=== PATIENT | female | born 1955 | race Caucasian/White ===

== ENCOUNTER → 2020-11-24 10:39 | Outpatient (CLI) | payer OTHER, SELFPAY ==
--- NOTE | ~2020-11-24 | US_ITS ---
US retroperitoneal comp 11/24/2020 10:54 Procedure: Realtime transabdominal ultrasound of the kidneys and bladder. Indication: Right flank pain Comparison: 11/05/2018 Findings: Renal echotexture is normal bilaterally without hydronephrosis, contour deforming mass or r enal calculus. The right kidney measures 12.4 cm and left kidney measures 10.7 cm. Bladder within no rmal limits. Impression: 1: Unremarkable renal ultrasound. No stones, masses or hydronephrosis. Reviewed, dictated and finalized at location A. PATIENT Impression: 1: Unremarkable renal ultrasound. No stones, masses or hydronephrosis.
== END ==
PROVIDERS: PCP Student in an Organized Health Care Education/Training Program; Visit Provider Student in an Organized Health Care Education/Training Program
DX: R10.9 Unspecified abdominal pain (principal)
CPT/HCPCS: 76770

== ENCOUNTER → 2020-12-16 13:56 | Outpatient (CLI) | payer OTHER, SELFPAY ==
--- NOTE | ~2020-12-16 | US_ITS ---
EXAMINATION: US thyroid EXAM DATE: 12/16/2020 14:14 INDICATION: Hypothyroidism. TECHNIQUE: Multiple grayscale and Doppler images of the thyroid were obtained (by a technologist who performed the scan) and subsequently reviewed. Individual nodules and recommendations may be reporte d in accordance with TI-RADS system as designated by the 2017 ACR White Paper TI-RADS committee. The re is no prior study for comparison. FINDINGS: The right there are lobe measures 4.3 x 1.4 x 1.3 cm, the left measuring 4.4 x 1.7 x 1.2 cm. Measurem ents are within expected size limits. Mildly heterogeneous thyroid echogenicity with expected amount of vascularity. There is a 3 mm right thyroid lobe nodule, not clinically significant finding. IMPRESSION: Unremarkable thyroid ultrasound. Reviewed, dictated and finalized at location A. RICT RECRUITER
== END ==
PROVIDERS: PCP Student in an Organized Health Care Education/Training Program; Visit Provider Student in an Organized Health Care Education/Training Program
DX: E03.9 Hypothyroidism, unspecified (principal); F48.8 Other specified nonpsychotic mental disorders
CPT/HCPCS: 76536

== ENCOUNTER 2021-01-07 10:25 | Outpatient (CLI) | payer OTHER, SELFPAY ==
--- NOTE | 2021-01-12 10:45 | NEURO_ITS ---
This report was moved to the correct visit, [id number], on January 14, 2021. Original report was signed by Dr. Jhon Moralez on January 12, 2021 at 1045. Neurology EEG Report General Information Date of Study: 01/07/21 TEST eeg DIAGNOSIS complaints of headaches CONDITION OF RECORDING awake drowsy and sleep EEG NUMBER [id number] CLINICAL HISTORY patient reported she has been epileptic ever since she was a teenager. Last few weeks she has been having cognitive issues, terrible headaches and losing weight EEG DESCRIPTION basic resting occipital frequency consists of low to medium voltage 8 to 9 hertz per 2nd alpha admixed with low-voltage 15 to 18 hertz per 2nd beta. Medium voltage 6 to 7 hertz per 2nd theta activity seen admixed with low-voltage beta activity during drowsiness. Bilateral symmetrical sleep activity seen during sleep. Hyperventilation not done. Photic stimulation produced normal drive. Non paroxysmal. Nonfocal. Nonlateralizing. IMPRESSION No significant abnormalities noted This dictation may have been done utilizing a voice recognition system. Attempts have been made to correct errors. However, there may be uncorrected grammatical, spelling, and recognition errors present. Report Initialized date/time: Jhon Moralez MD 01/12/21 / 1045 Electronically signed by: Jhon Moralez MD 01/12/21 1045 [facility]
== END 2021-01-07 10:26 | disposition home or self-care (01) ==
LOC: ANHNEURO 10:27
PROVIDERS: PCP Student in an Organized Health Care Education/Training Program; Visit Provider Psychiatry & Neurology Neurology
DX: R51.9 Headache, unspecified (principal)
CPT/HCPCS: 95816

== ENCOUNTER 2021-07-21 15:42 | Outpatient (CLI) | payer OTHER, SELFPAY ==
--- NOTE | ~2021-07-21 | US_ITS ---
EXAMINATION: US venous doppler LE RT EXAM DATE: 07/21/2021 16:36 INDICATION: Right leg pain. TECHNIQUE: Multiple grayscale, color flow and Doppler images of the right lower extremity deep venous system were obtained and reviewed. There is no prior study for comparison. FINDINGS: The right common femoral, femoral and profunda veins demonstrate normal color flow, respira tory variation, augmentation and compressibility. Compressibility, color flow confirmed within the r ight popliteal, posterior tibial, peroneal, and greater saphenous veins. IMPRESSION: 1. No right lower extremity deep venous thrombosis. Reviewed, dictated and finalized at location B.
== END 2021-07-21 15:43 | disposition home or self-care (01) ==
PROVIDERS: PCP Student in an Organized Health Care Education/Training Program; Visit Provider Student in an Organized Health Care Education/Training Program
DX: M79.604 Pain in right leg (principal)
CPT/HCPCS: 93971

== ENCOUNTER 2021-10-19 15:56 | Outpatient (CLI) | payer MEDICARE, SELFPAY ==
--- NOTE | ~2021-10-19 | MM_ITS ---
EXAMINATION: MM screening tk BI w sampson HISTORY: Screening mammogram TECHNIQUE: Craniocaudal and mediolateral oblique 3-D tomosynthesis images were obtained and synthetic 2-D images were generated. CAD analysis was submitted and interpreted. COMPARISON: No prior mammogram is available for comparison at this institution. BREAST PARENCHYMAL COMPOSITION: There are scattered areas of fibroglandular density. FINDINGS: Occasional benign calcifications. There is no evidence of suspicious mass, calcification, o r architectural distortion to suggest malignancy in either breast. There has been no suspicious inter angelita change. IMPRESSION: 1. No mammographic evidence of malignancy. 2. Recommend routine screening mammography in one year. BI-RADS Category 2: Benign finding(s). Reviewed, dictated and finalized at location A. [employer]
== END 2021-10-19 15:57 | disposition home or self-care (01) ==
LOC: ANHIMG 16:01
PROVIDERS: PCP Student in an Organized Health Care Education/Training Program; Visit Provider Student in an Organized Health Care Education/Training Program
DX: Z12.31 Encounter for screening mammogram for malignant neoplasm of breast (principal)
CPT/HCPCS: 77063; 77067

== ENCOUNTER 2021-12-20 10:54 | Emergency (ER) | payer MEDICARE, SELFPAY ==
--- NOTE | ~2021-12-20 | CT_ITS ---
EXAMINATION: CT brain wo con DATE: 12/20/2021 11:40 INDICATION: Confusion. Repeating words. TECHNIQUE: Computed tomography (CT) of the head was performed without intravenous contrast. The mA wa s adjusted according to patient size. Iterative reconstruction technique was employed. The dose-lengt h product was 605.33 mGy-cm. COMPARISON: Head CT 05/26/2019, brain MRI 05/26/2019 FINDINGS: There are scattered areas of low attenuation in the cerebral white matter, which is within normal limits for the patient's age. There is no intracranial hemorrhage, acute infarction, or abnorm al intracranial mass lesion. The ventricles are normal in size. There are likely changes of ocular le ns replacement surgeries. There is mild mucosal thickening in the ethmoid sinuses. The mastoid air ce lls are normal. IMPRESSION: 1. Normal aging brain. Reviewed, dictated and finalized at location A. OL COORDINATOR IMPRESSION: 1. Normal aging brain.
[2021-12-20 11:16] VITALS: BP 140/87; PULSE 92; RESP 18; TEMP 36.6; O2SAT 100
--- NOTE | 2021-12-20 11:19 | ECG_ITS ---
Measurements Intervals [place] Rate: 96 P: 69 [place]: 146 QRS: -58 QRSD: 113 T: 96 QT: 345 QTc: 437 Interpretive Statements SINUS RHYTHM LEFT ANTERIOR FASCICULAR BLOCK ST-T WAVE ABNORMALITY IN HIGH LATERAL LEADS- CONSIDER ISCHEMIA BASELINE ARTIFACT- I ABNORMAL ECG Electronically Signed On 12-20-2021 13:32:39 MANAGER CONSUMER by Theo Rojas D.O.
[2021-12-20 13:23] LABS: Basophils Percent Auto 0.3 % (0.2-1.2); Eosinophils Absolute Auto 0.3 K/mm3 (0-0.3); Eosinophils Percent Auto 3.4 % (0-4.4); Hematocrit 40.8 % (37.0-47.0); Hemoglobin 13.3 g/dL (12.0-15.0); Immature Granulocyte Absolute 0.04 K/mm3 (0.00-0.031); Immature Granulocyte Percent A 0.4 % (0-0.5); Lymphocytes Absolute Auto 2.35 K/mm3 (0.9-3.2); Lymphocytes Percent Auto 26.4 % (18.3-44.2); Mean Corpuscular HGB Conc 32.6 g/dl (32-36); Mean Corpuscular Hemoglobin 31.6 pg (26-34); Mean Corpuscular Volume 96.9 fl (80-100); Mean Platelet Volume 10.6 fl (7.4-10.4); Monocytes Absolute Auto 0.4 K/mm3 (0.1-0.6); Monocytes Percent Auto 4.5 % (2.6-8.5); Neutrophils Absolute Auto 5.8 K/mm3 (1.3-6.7); Platelet Count Result 278 k/mm3 (150-375); Red Blood Count 4.21 M/mm3 (4.2-5.4); Red Cell Distribution Width 12.9 % (11.5-14.5); White Blood Count 8.9 K/mm3 (4.5-10.0)
[2021-12-20 13:28] LABS: Alanine Aminotransferase 15 U/L (4-35); Albumin Level 4.3 g/dL (3.5-5.1); Alkaline Phosphatase 95 U/L (38-126); Anion Gap 11 mmol/L (8-16); Aspartate Amino Transferase 20 U/L (14-36); Bilirubin,Total 0.4 mg/dL (0.2-1.3); Blood Urea Nitrogen 47 mg/dL (7-17); Calcium 9.5 mg/dL (8.4-10.2); Carbon Dioxide 19 mmol/L (22-30); Chloride 108 mmol/L (98-107); Estimated CRCL calculation 28 ml/min; Estimated Glomerular Filt Rate 24; Glucose 84 mg/dL (65-110); Potassium 4.3 mmol/L (3.4-5.0); Sodium 138 mmol/L (137-145)
[2021-12-20] MEDS: SODIUM CHLORIDE 0.9% IV 1,000 ML 999 ML IV CONT (13:56)
[2021-12-20 15:06] LABS: Add Urine Microscopic? YES; Appearance Urine Cloudy (Clear); Bacteria Urine 4+ /hpf; Bilirubin Urine Negative (Negative); Blood Urine Negative (Negative); Budding Yeast Urine Present /hpf; Color Urine Yellow (Yellow); Glucose Urine UA Negative (Negative); Ketones Urine Negative (Negative); Leukocyte Esterase Ur 3+ LEU/UL (Negative); Mucus Urine Rare /lpf; Nitrate Urine Positive (Negative); Protein Urine Negative (Negative); Specific Grav Ur 1.018 (1.001-1.035); Squamous Epithelial Cell Urine Many /hpf (Few); Urobilinogen Urine Negative mg/dL (<2.0); WBC Clumps Urine Present /HPF; WBC Urine 31-50 /hpf
--- NOTE | 2021-12-20 16:05 | ED.GENADULT ---
HPI - General Adult General Chief complaint: Altered Mental Status Stated complaint: possible stroke/repeating a lot Time Seen by Provider: 12/20/21 13:10 History of Present Illness HPI narrative: Patient is a 66-year-old female who presents ER with concerns for possible TIA yesterday. Reports yesterday while having conversation with her daughter on the phone she would repeat statements occasionally. reports he witnessed at one time later in the evening. Patient did not not have total confusion. No slurred speech or weak arm or leg. Patient reports she had taken some gabapentin during the day. Patient feels much better today. Was supposed to have an epidural steroid injection but opted to come here. Patient last had an epidural steroid injection 10 days ago. No fevers or chills or sweats. No low back pain. Related Data Home Medications Medication Instructions Recorded Confirmed aspirin 81 mg tablet,delayed 81 mg PO DAILY 07/15/21 release diclofenac sodium 75 mg 75 mg PO BID 07/15/21 tablet,delayed release levothyroxine 137 mcg capsule 137 mcg PO DAILY 07/15/21 lisinopril 2.5 mg tablet 2.5 mg PO DAILY 07/15/21 topiramate 100 mg tablet 100 mg PO BID 07/15/21 gabapentin 12/20/21 glipizide-metformin tablet 12/20/21 rosuvastatin mg 12/20/21 Allergies Allergy/AdvReac Type Severity Reaction Status Date / Time adhesive tape AdvReac Unknown RASH Verified 07/21/21 14:56 Review of Systems Review of Systems: All systems reviewed & are unremarkable except as noted in HPI and below Constitutional: Constitutional: Denies chills, Denies fever(s) and Denies weakness ENT: Denies nasal congestion and Denies sore throat Gastrointestinal: Gastrointestinal: Denies abdominal pain, Denies nausea and Denies vomiting Genitourinary: Genitourinary: Denies nocturia and Denies dysuria Musculoskeletal: Musculoskeletal: Reports back pain (Chronic, nothing acute) Neurologic: Reports confusion, Denies dizziness, Denies headache(s), Denies focal weakness and Denies numbness PMF Past Medical History Medical History Anemia Arthritis Diabetes Thyroid disorder Family History Family History Other Family history of Alzheimer's disease Family history of blood dyscrasia Family history of cardiovascular disease Family history of malignant neoplasm of bone Family history of malignant neoplasm of uterus Hypertension Social History Social History Smoking status: Never smoker Alcohol intake: never Exam Narrative: GENERAL: Well-appearing, well-nourished, and in no acute distress. HEAD: Normocephalic, atraumatic. EYES: PERRL and EOMI. CHEST: Clear to auscultation. No respiratory distress. HEART: Regular rate and rhythm. Normal peripheral pulses. ABDOMEN: Soft, nontender, nondistended, normal active bowel sounds. EXTREMITIES: Normal range of motion. No edema. SKIN: Warm, dry, no rash. NEURO: No focal deficits. No upper or lower extremity drift. Normal keip-eo-gsds testing and finger-nose testing. Cranial nerves II through XII intact. Alert and oriented x3. PSYCH: Normal mood and affect. Course Course Emergency Course: Discussed elevated creatinine and potential causes. Contacted patient's PCP and they will have patient follow-up. Patient's last creatinine was 1.4 in 08/2021. Discussed with patient that would be advisable to not have another steroid injection until she sees her PCP. Will start on cephalexin for UTI. Vital Signs Vital signs: Vital Signs Temperature 97.9 F 12/20/21 11:16 Pulse Rate 92 12/20/21 11:16 Respiratory Rate 18 12/20/21 11:16 Blood Pressure 140/87 12/20/21 11:16 Pulse Oximetry 100 12/20/21 11:16 Temperature 97.9 F 12/20/21 11:16 Pulse Rate 92 12/20/21 11:16 Respiratory Rate 18 12/20/21 11:16 B
[2021-12-20 16:15] VITALS: BP 126/73; PULSE 98; RESP 16; TEMP 36.3; O2SAT 100
== END 2021-12-20 16:20 | disposition home or self-care (01) ==
PROVIDERS: Emergency Medicine; Emergency Provider Emergency Medicine; PCP Student in an Organized Health Care Education/Training Program
DX: N39.0 Urinary tract infection, site not specified (principal); R94.4 Abnormal results of kidney function studies; M19.90 Unspecified osteoarthritis, unspecified site; E11.9 Type 2 diabetes mellitus without complications; Z79.82 Long term (current) use of aspirin
CPT/HCPCS: 36415; 70450; 80053; 81001; 85025; 87077; 87086; 87186; 93005; 96360; 96361; 99284; J7030

== ENCOUNTER 2022-11-09 14:16 | Outpatient (CLI) | payer MEDICARE, SELFPAY ==
[2022-11-09 14:31] LABS: Basophils Absolute Auto 0.1 K/mm3 (0.0-0.1); Basophils Percent Auto 0.6 % (0.2-1.2); Eosinophils Absolute Auto 0.5 K/mm3 (0-0.3); Eosinophils Percent Auto 5.9 % (0-4.4); Hematocrit 42.2 % (37.0-47.0); Hemoglobin 13.8 g/dL (12.0-15.0); Immature Granulocyte Absolute 0.04 K/mm3 (0.00-0.031); Immature Granulocyte Percent A 0.5 % (0-0.5); Lymphocytes Percent Auto 25.5 % (18.3-44.2); Mean Corpuscular HGB Conc 32.7 g/dl (32-36); Mean Corpuscular Hemoglobin 30.5 pg (26-34); Mean Corpuscular Volume 93.2 fl (80-100); Mean Platelet Volume 10.4 fl (7.4-10.4); Monocytes Absolute Auto 0.4 K/mm3 (0.1-0.6); Monocytes Percent Auto 4.6 % (2.6-8.5); Neutrophils Absolute Auto 5.4 K/mm3 (1.3-6.7); Neutrophils Percent Auto 62.9 % (45.5-73.1); Platelet Count Result 301 k/mm3 (150-375); Red Blood Count 4.53 M/mm3 (4.2-5.4); White Blood Count 8.6 K/mm3 (4.5-10.0)
[2022-11-09 15:30] LABS: Immunoglobulin A 435 mg/dL (70-400); Immunoglobulin G 1348 mg/dL (700-1600); Immunoglobulin M 115 mg/dL (40-230)
[2022-11-09 15:44] LABS: Alanine Aminotransferase 14 U/L (6-35); Albumin Level 4.3 g/dL (3.5-5.1); Alkaline Phosphatase 100 U/L (38-126); Anion Gap 7 mmol/L (8-16); Aspartate Amino Transferase 31 U/L (14-36); Bilirubin,Total 0.4 mg/dL (0.2-1.3); Blood Urea Nitrogen 32 mg/dL (7-17); Calcium 9.3 mg/dL (8.4-10.2); Carbon Dioxide 26 mmol/L (22-30); Chloride 107 mmol/L (98-107); Estimated Glomerular Filt Rate 30; Glucose 160 mg/dL (65-110); Potassium 4.6 mmol/L (3.4-5.0); Sodium 140 mmol/L (137-145)
[2022-11-13 15:08] LABS: Kappa\\Lambda Light Chains 1.57 (0.26-1.65); Lambda Light Chain 32.2 mg/L (5.7-26.3)
[2022-11-13 15:43] LABS: Abnormal Protein Band 1 0.2 g/dL; Alpha 1 Globulin 0.4 g/dL (0.2-0.3); Beta 1 Globulin 0.5 g/dL (0.4-0.6); Gamma Globulin 1.3 g/dL (0.8-1.7); Protein, Total 7.7 g/dL (6.1-8.1)
== END 2022-11-09 14:17 | disposition home or self-care (01) ==
LOC: ANHLAB 14:18
PROVIDERS: PCP Student in an Organized Health Care Education/Training Program; Visit Provider Internal Medicine Hematology & Oncology
DX: D47.2 Monoclonal gammopathy (principal)
CPT/HCPCS: 36415; 80053; 82784; 83883; 84155; 84165; 85025

== ENCOUNTER 2023-01-30 01:55 | Outpatient (CLI) | payer MEDICARE, SELFPAY ==
[2023-01-25 12:16] VITALS: BMI 32.3
--- NOTE | 2023-01-25 12:19 | PC.NURSE ---
Pre Radiology instructions Report to the outpatient [place] [place] on date _01/30/23 @ 1100____ Procedure Time: _1300___ YOU MAY BE MONITORED AT HOSPITAL FOR UP TO 4 HOURS AFTER YOUR PROCEDURE. A visitors will be allowed to accompany the patient into the hospital. ?The visitor will be instructed to remain with patient at all times or leave the building due to restrictions.? We will allow the visitor to come back to the postoperative area when patient is ready.? NO children visitors allowed at this time. You and your visitor will be asked to self-screen and do not enter if you have any COVID symptoms. A mask is OPTIONAL within the hospital. Patients are to have no food or drink 6 hours prior to procedure time (0700 AM) Driving will be restricted after the procedure, you must have a person to drive you home. Labs will be drawn in preop area and once reviewed, you will be taken to radiology area for procedure. When the procedure is completed, you will be taken to outpatient where you will be monitored for several hours. You may have one visitor in this area. Other than holding anti-coagulants, patient may take other medication(s) as scheduled. Prior to your appointment date patients are instructed to hold anti-coagulants after discussing with ordering provider to stop. If unable to discontinue anti-coagulants please notify radiologist. ? No aspirin or warfarin (Coumadin) for 7 days prior to the procedure. ? No clopidogrel (Plavix), ticagrelor (Brilinta), prasugrel (Effient) or dabigatran (Pradaxa) for 5 days prior to the procedure. ? No rivaroxaban (Xarelto), apixaban (Eliquis), dipyridamole (Aggrenox or Persantine) or cilostazol (Pletal) for 2 days prior to the procedure. Medications to discontinue per physician: ___ASPIRIN Date to take last dose: __01/23/23 Please leave all valuables, including medications, at home the day of procedure. The hospital will not accept responsibility for valuables. Wear comfortable, loose fitting clothing.? Follow any additional instructions given to you from ordering provider. Telephone instructions given to __PATIENT__and asked if any additional questions and then verbalized understanding. Patient advised to call scheduling provider office or registration scheduling [phone] if any additional questions.
[2023-01-30] VITALS (10 sets, daily range): BP systolic 138–164; BP diastolic 51–80; PULSE 70–87; RESP 14–18; TEMP 36.6; O2SAT 100
--- NOTE | ~2023-01-30 | US_ITS ---
EXAMINATION: US biopsy renal DATE: 01/30/2023 13:44 INDICATION: Chronic kidney disease stage III. Monoclonal gammopathy of undetermined significance. TECHNIQUE: The procedure including the risks, benefits, and alternatives was discussed with the patie nt. Risks discussed included bleeding and infection. The patient understood the risks and agreed to p roceed. A timeout was performed to verify the patient's name, date of , and procedure to be p erformed. The skin overlying the left kidney was prepped and draped in usual sterile fashion. Anest hetic was administered with 1% lidocaine subcutaneously. An 18 gauge core biopsy needle was then use d to obtain 3 core biopsy specimens under continuous sonographic guidance. The entry site was cleaned and dressed. There were no immediate complications. FINDINGS: Ultrasound images demonstrate the needle in the kidney. IMPRESSION: 1. Ultrasound-guided random left kidney core needle biopsy. Reviewed, dictated and finalized at location A.
[2023-01-30 11:44] LABS: Mean Platelet Volume 9.9 fl (7.4-10.4); Platelet Count Result 247 k/mm3 (150-375)
[2023-01-30 11:54] LABS: Glucose Point of Care 185 mg/dl (65-105)
[2023-01-30 12:08] LABS: Prothrombin Time 12.9 Seconds (11.1-14.7)
[2023-01-30] MEDS: diazePAM (*CRX) 5 MG TABLET 2.5 MG PO (12:31)
[2023-01-30 13:55] LABS: Glucose Point of Care 137 mg/dl (65-105)
== END 2023-01-30 17:31 | disposition home or self-care (01) ==
PROVIDERS: PCP Student in an Organized Health Care Education/Training Program; Referring Provider Internal Medicine Nephrology; Visit Provider Radiology Diagnostic Radiology
PROC: (CPT 76942; principal; 2023-01-30 13:00)
DX: N18.32 Chronic kidney disease, stage 3b (principal); E13.21 Other specified diabetes mellitus with diabetic nephropathy
CPT/HCPCS: 36415; 50200; 76942; 82948; 85049; 85610; 88300; 88305; 88313; 88329; 88346; 88350; A9270

== ENCOUNTER 2023-03-07 12:44 | Outpatient (CLI) | payer MEDICARE, SELFPAY ==
--- NOTE | ~2023-03-07 | DEXA_ITS ---
Bone Density Report Name: BOB GROSS Age: 67 Sex: Female Ethnicity: White Date of : 1955 Indication: postmenopausal; screening for osteoporosis; cancer; seizure disorder; hysterectomy; Referring Provider: ELI, RAMO Study: Bone densitometry was performed. Exam Date: March 07, 2023 Accession number: [id number] Bone Density: Region BMD T-score Z-score Classification AP Spine(L1-L4) 1.091 0.4 2.3 Normal Femoral Neck (Left) 0.641 -1.9 -0.3 Osteopenia Total Hip (Left) 0.845 -0.8 0.5 Normal Femoral Neck (Right) 0.637 -1.9 -0.3 Osteopenia Total Hip (Right) 0.835 -0.9 0.4 Normal Total Hip Mean 0.840 -0.9 0.5 Normal World Health Organization criteria for BMD impression classify patients as: Normal (T-score at or above -1.0), Osteopenia (T-score between -1.0 and -2.5), or Osteoporosis (T-score at or below -2.5). 10-year Fracture Risk(1): Major Osteoporotic Fracture 9.7% Hip Fracture 1.3% Reported Risk Factors: [place] (), Neck BMD=0.641, BMI=33.2 (1) FRAX(R) Version 3.08. Fracture probability calculated for an untreated patient. Fracture probability may be lower if the patient has received treatment. Clinical Information Provided by Patient: Has the following medical conditions: Any Seizure Disorders, Cancer, Hysterectomy Patient maximum height was 66 Menopause Age: 41 No regular weight bearing exercise Onset of menses at age 13 Number of children 2 Impression: The patient has low bone mass, based on the Left Femoral Neck T-score. The patient has an estimated ten-year risk of hip fracture of 1.3% and an estimated ten-year risk of major fracture of 9.7%, based on the WHO FRAX algorithm. Discussion: BONE DENSITY IS LOW AT ONE OR MORE SKELETAL SITES. This patient's lowest T-score is low at one or more skeletal sites. It meets the World Health Organization's (WHO) criteria for ?low bone mass? (T-score between -1.0 and -2.5). The patient's 10-year risk of fracture as calculated by FRAX is less than the threshold where pharmacological therapy is recommended by the National Osteoporosis Foundation (NOF). However, all treatment decisions require clinical judgment and consideration of individual patient factors, including patient preferences, comorbidities, previous drug use, risk factors not captured in the FRAX model (e.g., frailty, falls, vitamin D deficiency, increased bone turnover, interval significant decline in bone density) and possible under or overestimation of fracture risk by FRAX. The patient should follow a healthful lifestyle (good nutrition with adequate calcium and vitamin D, and appropriate weight-bearing exercise). Follow-Up: Consider repeating this study in 2 to 3 years to reassess this patient's status, or sooner if there is some new clin
--- NOTE | ~2023-03-07 | MM_ITS ---
EXAMINATION: MM screening [facility] BI w sampson HISTORY: Screening mammogram TECHNIQUE: Craniocaudal and mediolateral oblique 3-D tomosynthesis images were obtained and synthetic 2-D images were generated. CAD analysis was submitted and interpreted. COMPARISON: 10/19/2021, 11/24/2016, 05/01/2015 BREAST PARENCHYMAL COMPOSITION: There are scattered areas of fibroglandular density. FINDINGS: No suspicious mass, calcification, or architectural distortion are identified in either ruth ann ast to suggest malignancy. There has been no suspicious interval change. IMPRESSION: 1. No mammographic evidence of malignancy. 2. Recommend routine screening mammography in one year. BI-RADS Category 1: Negative Reviewed, dictated and finalized at location A.
== END 2023-03-07 12:45 | disposition home or self-care (01) ==
PROVIDERS: PCP Student in an Organized Health Care Education/Training Program; Visit Provider Student in an Organized Health Care Education/Training Program
DX: Z12.31 Encounter for screening mammogram for malignant neoplasm of breast (principal); Z78.0 Asymptomatic menopausal state; M85.852 Other specified disorders of bone density and structure, left thigh; M85.851 Other specified disorders of bone density and structure, right thigh
CPT/HCPCS: 77063; 77067; 77080

== ENCOUNTER 2023-05-08 00:30 | Emergency (ER) | payer MEDICARE, SELFPAY ==
[2023-05-08] VITALS (11 sets, daily range): BP systolic 140–218; BP diastolic 81–111; PULSE 87–108; RESP 12–19; TEMP 36.3–36.4; O2SAT 98–100
--- NOTE | ~2023-05-08 | CT_ITS ---
Non-contrast Head CT History: Headache COMPARISON: 12/20/2021 Technique: Axial non-contrast imaging of the brain was performed. Dose reduction technique was used on this scan by utilizing automated exposure control and iterative reconstruction technique. The dose -length product (DLP) was 605.33 mGy-cm. Findings: There is no evidence of intracranial hemorrhage, mass lesion, or acute infarct. Brain par enchyma appears normal. The ventricles and subarachnoid spaces are normal in size. The calvarium ap pears normal. The visualized paranasal sinuses and mastoid air cells are clear. Impression: No significant abnormality seen. Reviewed, dictated and finalized at location . Impression: No significant abnormality seen.
--- NOTE | 2023-05-08 03:34 | ED.GENADULT ---
HPI - General Adult General Chief complaint: Unspecified Stated complaint: headache, N/V, confusion Time Seen by Provider: 05/08/23 03:08 History of Present Illness HPI narrative: This is a 67-year-old female with past history of seizures, migraines and TIA, who presents emergency department complaining of intermittent headache for the past 3 days. She states 3 days ago, she developed a sharp, throbbing right-sided headache rated 10/10 consistent with previous migraines and associated with bilateral numbness of the hands. Headache resolved on its own, but recurred again tonight at approximately 9 PM. This was also associated with bilateral hand numbness. Related Data Home Medications Medication Instructions Recorded Confirmed aspirin 81 mg tablet,delayed 81 mg PO DAILY 07/15/21 01/25/23 release topiramate 100 mg tablet (Topamax) 100 mg PO BID 07/15/21 01/25/23 rosuvastatin 5 mg tablet 5 mg DAILY 12/20/21 01/30/23 levothyroxine 25 mcg tablet 25 mcg PO DAILY 01/18/22 01/30/23 losartan 25 mg tablet 25 mg PO DAILY 01/18/22 01/30/23 dulaglutide 1.5 mg/0.5 mL 1.5 mg subcut WEEKLY 01/16/23 01/30/23 subcutaneous pen injector (Trulicity) gabapentin 300 mg capsule 300 mg PO DAILY PRN Pain 01/16/23 01/30/23 metformin 500 mg tablet 500 mg PO BID 01/16/23 01/30/23 Probiotic 1 tab-cap DAILY 01/25/23 01/30/23 Allergies Allergy/AdvReac Type Severity Reaction Status Date / Time adhesive tape AdvReac Unknown RASH Verified 01/30/23 11:41 Review of Systems Review of Systems: CONSTITUTIONAL: Denies fever, chills, or sweats. EYES: Photophobia, blurred vision denies redness, or discharge. ENT: Denies rhinorrhea, congestion, sore throat, or otalgia. CARDIOVASCULAR: Denies chest pain, palpitations, or edema. RESPIRATORY: Denies cough or dyspnea. GASTROINTESTINAL: Denies abdominal pain, nausea, vomiting, or diarrhea. GENITOURINARY: Denies dysuria or hematuria. SKIN: Denies rash or itching. MUSCULOSKELETAL: Denies back pain, joint pain, or myalgia. NEUROLOGIC: Headache, lightheadedness, bilateral hand numbness (now resolved) denies numbness, dizziness. PSYCHIATRIC: Denies anxiety or depression. [facility] Past Medical History Medical History (Updated 05/08/23 @ 05:52 by Rashel Lloyd MD) Anemia Arthritis Diabetes Facet syndrome Hypothyroidism (acquired) Kidney disease Migraine Myeloma Thyroid disorder Type 2 diabetes mellitus with hyperglycemia Family History Family History Other Family history of Alzheimer's disease Family history of blood dyscrasia Family history of cardiovascular disease Family history of malignant neoplasm of bone Family history of malignant neoplasm of uterus Hypertension Social History Social History Smoking status: Former smoker Tobacco type: cigarettes Smoking end date: 01/31/12 Alcohol intake: current Alcohol use details: rarely Substance use: current Substance use type: marijuana Lack of Transportation: No Lack of Food: Never True Current Housing: I Have Housing Concerned About Future Housing: No Difficulty Paying Gas/Electric Bills: No Difficulty Paying for Meds: No Currently Unemployed: No Education: Associate Degree Difficulty w/ Childcare or Family Care: No Gender identity (if verbalized by the patient): Female Exam Narrative: GENERAL: Well-developed, well-nourished, appears uncomfortable HEAD: Normocephalic, atraumatic. EYES: PERRLA and EOMI. ENT: Nares clear, no rhinorrhea or epistaxis. Mucous membranes moist. Oropharynx without tonsillar hypertrophy exudate or other lesions. NECK: Supple. No adenopathy or masses. No carotid bruits or JVD CHEST: Clear to auscultation. No respiratory distress. No wheezes rales or rhonchi HEART: Regular rate and rhythm. No murmur heard. Normal peripheral pulses. ABDOMEN: Soft, nonte
[2023-05-08] MEDS: SODIUM CHLORIDE 0.9% IV 1,000 ML 999 ML IV CONT (03:45)
[2023-05-08] MEDS: diphenhydrAMINE HCl INJ 50 MG/ML VIAL 25 MG IV PUSH (03:46)
[2023-05-08] MEDS: PROCHLORPERAZINE EDISYLATE 10 MG/2 ML VIAL IV PUSH (03:47)
[2023-05-08] MEDS: LABETALOL HCL INJ 100 MG/20 ML VIAL 20 MG IV PUSH (04:29)
--- NOTE | 2023-05-08 04:36 | PC.NURSE ---
At 0415 this RN observed pt blood pressure to be 206/111. Pt was laying on the left side where blood pressure cuff was place. This RN made EDP aware. EDP stated to have pt lay on their back. This RN repositioned pt to get another blood pressure reading. New blood pressure reading was 190/101. EDP stated he would order labetolol. This RN gave pt labetolol and new pressure at 0433 was 180/82.
== END 2023-05-08 06:07 | disposition home or self-care (01) ==
PROVIDERS: Emergency Provider Preventive Medicine Aerospace Medicine; PCP Student in an Organized Health Care Education/Training Program
DX: G43.909 Migraine, unspecified, not intractable, without status migrainosus (principal); I10 Essential (primary) hypertension; E11.9 Type 2 diabetes mellitus without complications; E03.9 Hypothyroidism, unspecified; E07.9 Disorder of thyroid, unspecified; N28.9 Disorder of kidney and ureter, unspecified; M19.90 Unspecified osteoarthritis, unspecified site; Z85.79 Personal history of other malignant neoplasms of lymphoid, hematopoietic and related tissues; Z86.2 Personal history of diseases of the blood and blood-forming organs and certain disorders involving the immune mechanism; Z86.73 Personal history of transient ischemic attack (TIA), and cerebral infarction without residual deficits; Z87.891 Personal history of nicotine dependence; Z79.82 Long term (current) use of aspirin; Z79.84 Long term (current) use of oral hypoglycemic drugs
CPT/HCPCS: 70450; 96361; 96365; 96375; 99284; J0131; J0780; J1200; J7030

== ENCOUNTER 2023-06-14 10:35 | Outpatient (CLI) | payer MEDICARE, SELFPAY ==
--- NOTE | ~2023-06-14 | US_ITS ---
EXAMINATION: US carotid duplex BI DATE: 06/14/2023 11:18 INDICATION: Lightheadedness TECHNIQUE: Grayscale, color Doppler, and pulsed Doppler images of the cervical carotid arteries were obtained. The degree of vessel stenosis is placed in one of the following categories: normal, <50%, 5 0-69%, >=70% but less than near-occlusion, near-occlusion, or total occlusion. Note that percent sten osis relative to normal distal artery lumen diameter is indirectly measured from velocity measurement s as described by Nuno, et al. Radiology 2003; 229:340-346. Notes: Normal: Peak systolic velocity <125 centimeters/sec and no plaque <50%. Peak systolic velocity <125 ( EDV <40; ICA/CCA PSV ratio <2.0; used these factors only a tandem lesions or low cardiac output or co ntralateral disease) 50-69 %: PSV 125-230 (EDV 40-100; ratio 2-4) >= 70% but less than near occlusion: PSV greater than 230 (EDV > 100; ratio> 4.0) Near Occlusion: PSV that is variable; markedly narrowed lumen Occlusion: Absent flow on color/spectral Doppler and no lumen on wallace scale. COMPARISON: None. FINDINGS: RIGHT: The right common carotid artery (CCA) peak systolic velocity (PSV) is 66 cm/s. The right internal car otid artery (ICA) PSV is 82 cm/s. The right ICA end-diastolic velocity (EDV) is 21 cm/s. The right IC A/CCA PSV ratio is 1.2. The external carotid artery (ECA) PSV is 87 cm/s. There is antegrade flow in the right vertebral artery. LEFT: The left CCA PSV is 71 cm/s. The left ICA PSV is 76 cm/s. The left ICA EDV is 25 cm/s. The left ICA/C CA PSV ratio is 1.1. The ECA PSV is 138 cm/s. There is antegrade flow in the left vertebral artery. IMPRESSION: 1. Less than 50% stenosis in the right internal carotid artery by sonographic criteria. 2. Less than 50% stenosis in the left internal carotid artery by sonographic criteria. Reviewed, dictated and finalized at location A. IMPRESSION: 1. Less than 50% stenosis in the right internal carotid artery by sonographic c livier. 2. Less than 50% stenosis in the left internal carotid artery by sonographic william brink.
== END 2023-06-14 10:36 | disposition home or self-care (01) ==
PROVIDERS: PCP Student in an Organized Health Care Education/Training Program; Visit Provider Student in an Organized Health Care Education/Training Program
DX: I65.23 Occlusion and stenosis of bilateral carotid arteries (principal); R42 Dizziness and giddiness
CPT/HCPCS: 93880

== ENCOUNTER 2023-07-19 12:29 | Outpatient (CLI) | payer MEDICARE, SELFPAY ==
--- NOTE | ~2023-07-19 | MR_ITS ---
EXAMINATION: MR brain/brain stem wo/w con DATE: 07/19/2023 13:15 INDICATION: Headache. Dizziness. TECHNIQUE: Magnetic resonance imaging (MRI) of the brain and brainstem was performed without and with 15 mL MultiHance intravenous contrast. COMPARISON: Brain MRI 05/26/2019, head CT 05/08/2023 FINDINGS: There are scattered areas of nonspecific increased T2-weighted signal intensity in the cere bral white matter, which is within normal limits for the patient's age. There is no intracranial hemo rrhage, acute infarction, or abnormal intracranial mass lesion. The ventricles are normal in size. Th ere is mild mucosal thickening in the ethmoid sinuses. There are likely changes of ocular lens replac ement surgeries. The mastoid air cells are normal. IMPRESSION: 1. Normal aging brain. Reviewed, dictated and finalized at location E. IMPRESSION: 1. Normal aging brain.
== END 2023-07-19 12:30 | disposition home or self-care (01) ==
PROVIDERS: PCP Student in an Organized Health Care Education/Training Program; Visit Provider Student in an Organized Health Care Education/Training Program
DX: R51.9 Headache, unspecified (principal)
CPT/HCPCS: 70553; A9577

== ENCOUNTER 2025-06-05 15:36 | Outpatient (CLI) | payer MEDICARE, SELFPAY ==
--- NOTE | ~2025-06-05 | MM_ITS ---
EXAMINATION: MM screening tk BI w sampson HISTORY: Screening TECHNIQUE: Craniocaudal and mediolateral oblique 3-D tomosynthesis images were obtained and synthetic 2-D images were generated. CAD analysis was submitted and interpreted. COMPARISON: Comparison to multiple prior studies sequentially, with oldest reviewed study dated 05/01. BREAST PARENCHYMAL COMPOSITION: There are scattered areas of fibroglandular density. FINDINGS: There is no evidence of suspicious mass, calcification, or architectural distortion to sug gest malignancy in either breast. There has been no suspicious interval change. IMPRESSION: 1. No mammographic evidence of malignancy. 2. Recommend routine screening mammography in one year. BI-RADS Category 1: Negative Reviewed, dictated and finalized at location B.
--- OUTSIDE RECORDS SUMMARY | 2025-06-05 15:39 | XMS_ITS | Encounter Summary ---
Author Organization [facility] Address Replaced by [facility] [place] [address] Care Team Providers Care Procurement Consultant Name Role Phone Edgardo Shultz Anne-Marie HARKINS Primary Care Provider + Alecia Cruz RN Unavailable Bubba Remy MD Unavailable [phone] Clarisse Newberry RN Unavailable [phone] Encounter Details Date Type Department Care Team (Late st Contact Info) Description 02/10/2022 Prep for Procedure [facility] [place] [address] [id number] Joycelyn Zarco NP 3 [facility] [address] [place] [phone] (Work) Social History Tobacco Use Types Packs/Day Years Used Date Smoking Tobacco: Former Cigarettes 1 10 1 12/16/2005 - 10/16/2016 Smokeless Tobacco: Never Alcohol Use Standard Drinks/Week Comments Never 0 (1 standard drink = 0.6 oz pur e alcohol) AUDIT-C Answer Date Recorded Q1: How often do you have a drink containing alc ohol? 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 No / Unsure 01/25/2022 9:49 AM PURCHASING MANAGER/SALES documented as of this encounter Plan of Treatment Upcoming Encounters Date Type Department Care Team (Late st Contact Info) Description 07/03/2025 8:40 AM CDT Office Visit [facility] Family & Internal Medicine - [address] [address] Edgardo Shultz, [address] [place] [address] 07/08/2025 10:40 AM CDT Office Visit [facility] - [address], [address] [place] [phone] Phuong Norman NP 3 [facility]. [address] [place] [address] 07/31/2025 9:45 AM CDT Office Visit [facility] [phone] Glory Chatman MD Three [facility] [address] [place] [address] 09/29/2025 11:40 AM PURCHASING MANAGER/SALES Office Visit [facility] - [address] [place] [address] Saúl Keyes DO 3 [facility] [address] [place] [address] documented as of this encounter Visit Diagnoses Not on filedocumented in this encounter Additional Health Concerns Infection Onset Date Last Indicated Resolved Time COVID-19 Rule Out 11/10/2023 11/10/2023 11/10/2023 1:31 PM PURCHASING MANAGER/SALES Influenza - Seasonal 11/10/2023 11/10/2023 024 12:32 AM PURCHASING MANAGER/SALES COVID-19 Rule Out 12/17/2024 12/17/2024 12/17/2024 11:41 AM PURCHASING MANAGER/SALES Assessment Noted Time PHQ-9 Depression Total Score: 7 12/15/19 21 2:53 PM PURCHASING MANAGER/SALES documented as of this encounter Care Teams Procurement Consultant Relationship Specialty Start Date End Date Edgardo Shultz DO [address] [place] [address] PCP - General FAMILY PRACTICE 10/16/18 Alecia Cruz, RN [address] [place] [address] Vehicle Dismantler (Ambulatory) REGISTERED NURSE 07/18/22 07/18/22 Bubba Remy MD 3 [facility] [address] [place] [phone] Consulting Physician CARDIOVASCULAR DISEASE 10/24/23 Clarisse Newberry, RN [address] [facility] [address] [place] [address] Registered Nurse CARE MANAGEMENT 10/29/23 11/28/23 documented as of this encounter
--- OUTSIDE RECORDS SUMMARY | 2025-06-05 15:39 | XMS_ITS | Clinical Summary ---
Author Organization [facility] Skylar liu Cassandra Address [address] [place] [address] Care Team Providers Care Director Of Product Design Name Role Phone Unavailable Primary Care Provider Unavailabl e Allergies Active Allergy Reactions Criticality Noted Date Comments Adhesive Other (See Comments) Low 10/16/2018 Skin irritation Medications Trulicity 1.5 mg/0.5 mL injection ADMINISTER 1.5 MG UNDER THE SKIN EVERY 7 DAYS 2 Active HYDROcodone-nery taminophen (NORCO) 10-325 mg Tablet hydrocodone 10 mg-acetaminophen 325 mg tablet TAKE 1 TABLET BY MOUTH EVERY 6 HOURS NEEDED HEADACHE Active levothyroxine 25 mcg tablet Take 25 mcg by mouth daily. 1 Active losartan (COZAAR) 25 mg tablet losartan 25 mg tablet 2 Active rosuvastatin (CRESTOR) 5 mg tablet Take 5 mg by mouth daily. Active topiramate (TOPAMAX) 100 mg tablet topiramate 100 mg tablet Active traMADoL (ULTRAM) 50 mg tablet Take 1 tablets every 6 hours as needed for pain. 0 Active aspirin (ECOTRIN EC) 81 mg Tablet, Delayed Release (E.C.) Take 81 mg by mouth daily. Active Active Problems No known active problems Family History Medical History Relation Name Comments Hypertension Brother No Known Problems Daughter 1 No Known Problems Daughter 2 Heart Disease Father Hypertension Mother Heart Disease Sister Relation Name Status Comments Brother Alive Daughter 1 Alive Daughter 2 Alive Father Mother Alive Sister Social History Tobacco Use Types Packs/Day Years Used Date Smoking Tobacco: Former Cigarettes 1 10 0 11/19/2001 - 11/19/2011 Tobacco Cessation:Counseling Given: Not Answered Alcohol Use Standard Drinks/Week Comments Yes 0 (1 standard drink = 0.6 oz pur e alcohol) ocassionally Comments Unknown Sex and Gender Information Value Date Recorded Sex Assigned at Not on file Legal Sex Female 4:16 PM SHAPER SETTER Gender Identity Not on file Sexual Orientation Not on file Last Filed Vital Signs Vital Sign Reading Time Taken Comments Blood Pressure 137/71 11/24/2022 10:05 AM SHAPER SETTER Pulse 86 11/24/2022 10:03 AM SHAPER SETTER Temperature 36.4 C (97.6 F) 11/24/2022 10:03 AM SHAPER SETTER Respiratory Rate 14 11/24/2022 10:03 AM SHAPER SETTER Oxygen Saturation 100% 11/24/2022 10:03 AM SHAPER SETTER Inhaled Oxygen Concentration - - Weight 91.9 kg (202 lb 9.6 oz) 11/24/2022 10:03 AM SHAPER SETTER Height 167.6 cm (5' 6) 11/09/2022 1:46 PM SHAPER SETTER Body Mass Index 32.7 11/09/2022 1:46 PM SHAPER SETTER Plan of Treatment Health Maintenance Due Date Last Done Comments DIABETES ANNUAL FOOT EXAM 1974 DIABETES ANNUAL RETINAL EXAM 1974 DIABETES MICROALBUMIN ANNUAL SCREEN 1974 LDL CHOLESTEROL ANNUAL 1974 DTAP/TDAP/TD VACCINES (1 - Tdap) 1975 PNEUMOCOCCAL VACCINE 50+ YEA RS (1 of 2 - PCV) 1975 BREAST CANCER SCREENING 1996 COLORECTAL SCREENING 2001 Colorectal Cancer Screening 2001 FIT-DNA Q 3 years 2001 FIT/FOBT Q 1 year 2001 Flex Sig/CT Colonography Q 5 years 2001 ZOSTER VACCINE (1 of 2) 2006 RSV VACCINE (60+ or ) (1 - Risk 60-74 years 1-dose series) 2016 OSTEOPOROSIS SCREENING 2021 DIABETES HBA1C Q 6 MONTHS 01/16/2023 07/18/2022 COVID-19 Vaccine (5 - 2023-2 5 season) 2024 09/02/2022, 03/27/2022, 08/17/2021, Additional history exists INFLUENZA VACCINE (#1) 2025 , 08/15/2019, 09/16/2018, Additional history exists Insurance [facility]
--- OUTSIDE RECORDS SUMMARY | 2025-06-05 15:39 | XMS_ITS | Encounter Summary ---
Author Organization [facility] Address Formerly [facility] [place] [address] Care Team Providers Care Global Sales Director Name Role Phone Edgardo Shultz DO Primary Care Provider + Bubba Remy MD Unavailable [phone] Clarisse Newberry RN Unavailable [phone] Encounter Details Date Type Department Care Team (Late st Contact Info) Description 02/28/2023 LocalCustomert Message Enc [facility] Family & Internal Medicine [facility] [address] [place] [address] Edgardo Shultz DO [address] [place] [address] Question regarding TSH W/REFLEX Social History Tobacco Use Types Packs/Day Years [...] please move on to questions 3-9 2 05/12/2022 Comments No Sex and Gender Information Value Date Recorded Sex Assigned at Female 12/12/2024 11:05 AM GERIATRIC CASE MANAGER Legal Sex Female 11:21 AM GERIATRIC CASE MANAGER Gender Identity Female 12/15/2024 10:33 AM GERIATRIC CASE MANAGER Sexual Orientation Straight 01/05/2025 10 :13 AM GERIATRIC CASE MANAGER 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 No / Unsure 03/01/2023 11:51 AM CDT documented as of this encounter Progress Notes * Edgardo Shultz DO - 03/01/2023 7:53 AM CDT Keep at current dose. documented in this encounter Plan of Treatment Upcoming Encounters Date Type Department Care Team (Late st Contact Info) Description 07/03/2025 8:40 AM CDT Office Visit [facility] Family & Internal Medicine - [address] [phone] Edgardo Shultz DO [address] [place] [address] 07/08/2025 10:40 AM CDT Office Visit [facility] Multispecialty Care - [facility] 3 [facility], [facility] [address] [place] [phone] Phuong Norman NP 3 [facility]. [address] [place] [address] 07/31/2025 9:45 AM CDT Office Visit [facility]-[address] [phone] Glory Chatman MD Three [facility] [address] [place], [place] [address] 09/29/2025 11:40 AM GERIATRIC CASE MANAGER Office Visit [facility] Multispecialty Care - [facility] [address] [facility] [address] [place] [phone] Saúl Keyes DO 3 [facility] [address] [place] [address] documented as of this encounter Visit Diagnoses Not on filedocumented in this encounter Additional Health Concerns Infection Onset Date Last Indicated Resolved Time COVID-19 Rule Out 11/10/2023 11/10/2023 11/10/2023 1:31 PM GERIATRIC CASE MANAGER Influenza - Seasonal 11/10/2023 11/10/2023 024 12:32 AM GERIATRIC CASE MANAGER COVID-19 Rule Out 12/17/2024 12/17/2024 12/17/2024 11:41 AM GERIATRIC CASE MANAGER Assessment Noted Time PHQ-9 Depression Total Score: 6 05/12/20 2:03 PM CDT documented as of this encounter Care Teams Global Sales Director Relationship Specialty Start Date End Date Edgardo Shultz DO [address] [place] [address] PCP - General FAMILY PRACTICE 10/16/18 Bubba Remy MD 3 [facility] [address] [place] [phone] Consulting Physician CARDIOVASCULAR DISEASE 10/24/23 Clarisse Newberry, RN [address] [facility] [address] [place] [address] Registered Nurse CARE MANAGEMENT 10/29/23 11/28/23 documented as of this encounter
--- OUTSIDE RECORDS SUMMARY | 2025-06-05 15:39 | XMS_ITS | Encounter Summary ---
Author Organization [facility] Address [address] [place] [address] Care Team Providers Care Swing Type Lathe Operator Name Role Phone Edgardo Shultz DO Primary Care Provider + Bubba Remy MD Unavailable [phone] Clarisse Newberry RN Unavailable [phone] Encounter Details Date Type Department Care Team (Late st Contact Info) Description 03/13/2023 Mitrot Message Enc [facility] Family & Internal Medicine [facility] [address] [place] [address] Edgardo Shultz DO [address] [place] [address] Mammogram Results Social History Tobacco Use Types Packs/Day Years [...] Sex Assigned at Female 12/12/2024 11:05 AM SPECIAL EVENTS PLANNER Legal Sex Female 11:21 AM SPECIAL EVENTS PLANNER Gender Identity Female 12/15/2024 10:33 AM SPECIAL EVENTS PLANNER Sexual Orientation Straight 01/05/2025 10 :13 AM SPECIAL EVENTS PLANNER 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 No / Unsure 03/01/2023 11:51 AM CDT documented as of this encounter Plan of Treatment Upcoming Encounters Date Type Department Care Team (Late st Contact Info) Description 07/03/2025 8:40 AM CDT Office Visit [facility] Family & Internal Medicine - [address] [phone] Edgardo Shultz, [address] [address] 07/08/2025 10:40 AM CDT Office Visit [facility] - [address] [place] [phone] Phuong Norman NP 3 [facility]. [address] [place], [place] [phone] 07/31/2025 9:45 AM CDT Office Visit [facility]-[address] [address] Glory Chatman MD Three [facility] [address] [place] [address] 09/29/2025 11:40 AM SPECIAL EVENTS PLANNER Office Visit [facility] - [address] [place] [phone] Saúl Keyes DO [address] [place], [place] [address]s [address] [place] [address] documented as of this encounter Visit Diagnoses Not on filedocumented in this encounter Additional Health Concerns Infection Onset Date Last Indicated Resolved Time COVID-19 Rule Out 11/10/2023 11/10/2023 11/10/2023 1:31 PM SPECIAL EVENTS PLANNER Influenza - Seasonal 11/10/2023 11/10/2023 024 12:32 AM SPECIAL EVENTS PLANNER COVID-19 Rule Out 12/17/2024 12/17/2024 12/17/2024 11:41 AM SPECIAL EVENTS PLANNER Assessment Noted Time PHQ-9 Depression Total Score: 6 05/12/20 2:03 PM CDT documented as of this encounter Care Teams Swing Type Lathe Operator Relationship Specialty Start Date End Date Edgardo Shultz DO [address] [place] [address] PCP - General FAMILY PRACTICE 10/16/18 Bubba Remy MD 3 [facility] [place] [address] [place] [phone] Consulting Physician CARDIOVASCULAR DISEASE 10/24/23 Clarisse Newberry, RN [address] [facility] [address] [place] [address] Registered Nurse CARE MANAGEMENT 10/29/23 11/28/23 documented as of this encounter
--- OUTSIDE RECORDS SUMMARY | 2025-06-05 15:39 | XMS_ITS | Encounter Summary ---
Author Organization [facility] Address Formerly [facility] [place] [address] Care Team Providers Care Gun Perforator Name Role Phone LexiiheidiSully moodychary Anne-Marie HARKINS Primary Care Provider + Bubba Remy MD Unavailable [phone] Encounter Details Date Type Department Care Team (Late st Contact Info) Description 02/01/2024 [employer] Message Enc [facility] Medical Group Multispecialty Care - [facility] 3 [facility], [facility] [address] [place] [phone] [employer] Provider Appointment Social History Tobacco Use Types Packs/Day Years Used Date Smoking Tobacco: Former Cigarettes 1 15 1 12/16/1998 - 10/16/2014 Passive Smoke Exposure: Never Smokeless Tobacco: Never Alcohol Use Standard Drinks/Week Comments Never 0 (1 standard drink = 0.6 oz pure alcohol) rarely has alcohol, about once a year or less OASIS D0700: Social Isolation Answer Da te Recorded Frequency of experiencing loneliness or isolatio n Never 11/21/2023 OASIS A1250: Transportation Answer Date Recorded Lack of Transportation (Medical) Yes 11/21/2023 Lack of Transportation (Non-Medical) No 11/21/2023 Patient Unable or Declines to Respond No 11/21/2023 OASIS B1300: Health Literacy Answer Matthieu e Recorded Frequency of needing help to read materials from doctor or pharmacy Never 11/21/2023 [facility] Utilities Answer Date Recorded In the past 12 months has [employer] electric, gas, oil, or water company threatened to shut off services in your home? No 11/10/2023 Humiliation, Afraid, Rape, and Kick questionnair e Answer Date Recorded Within the last year, have y ou been afraid of your partner or ex-partner? No 11/10/2023 Within the last year, have y ou been humiliated or emotionally abused in other ways by your partner or ex-partner? No Within the last year, have y ou been kicked, hit, slapped, or otherwise physically hurt by your partner or ex-partner? No 11/10/2023 Within the last year, have y ou been raped or forced to have any kind of sexual activity by your partner or ex-partner? No 11/10/2023 AUDIT-C Answer Date Recorded Q1: How often do you have a drink containing alc ohol? Never 12/09/2020 Average Number of Drinks Not on file 021 Frequency of Binge Drinking Not on file 11/20 Overall Financial Resource Strain (CARDIA) Answe r Date Recorded How hard is it for you to pa y for the very basics like food, housing, medical care, and heating? Not hard at all 11/10/2023 PHQ-2 Answer Date Recorded Patient Health Questionnaire-2 Score 0 02/04/2024 Hunger Vital Sign Answer Date Recorded Within the past 12 months, y ou worried that your food would run out before you got the money to buy more. Never true 11/10/20 Within the past 12 months, t he food you bought just didn't last and you didn't have money to get more. Never true 11/10/2023 PRAPARE - Transportation Answer Date Re corded In the past 12 months, has l ack of transportation kept you from medical appointments or from getting medications? No 10/20 In the past 12 months, has l ack of transportation kept you from meetings, work, or from getting things needed for daily living? No 11/10/2023 Housing Stability Vital Sign Answer Matthieu e Recorded In the last 12 months, was t here a time when you were not able to pay the mortgage or rent on time? No 11/10/2023 In the last 12 months, how many places have you lived? 1 11/10/2023 In the last 12 months, was t here a time when you did not have a steady place to sleep or slept in a intermediate (including now)? 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 Answer Date of Assessment Author Status No 11/10/2023 4:56 PM Paula Coffman RN Active * Do you have serious difficulty walking or climbing stairs? Answer Date of Assessment Author Status No 11/10/2023 4:56 PM Paula Coffman RN Active * Do you have difficulty dressing or bathing? Answer Date of Assessment Author Status No 11/10/2023 4:56 PM Paula Coffman RN Active * Because of a physical, mental, or emotional condition, do you have difficulty doing errands alone such as visiting a doctor's office or shopping? Answer Date of Assessment Author Status No 11/10/2023 4:56 PM Paula Coffman RN Active * Over the past 2 weeks, how often have you been bothered by any of the following problems? Question Answer Date of Assessment Author Status Little interest or pleasure in doing things Not at all 02/04/2024 1:09 PM CDT Brittni Randall MA Active Feeling down, depressed, or hopeless Not at all 02/04/2024 1:09 PM CDT Brittni Randall MA Active Patient Health Questionnaire-2 Score 0 02/04/2024 1:09 PM Brittni Sweeney MA Active documented as of this encounter Mental Status * Because of a physical, mental, or emotional condition, do you have serious difficulty concentrating, remembering, or making decisions? Answer Entry Date Author Status No 11/10/2023 4:56 PM DANCE MASTER Paula Clinton RN Active documented in this encounter Plan of Treatment Upcoming Encounters Date Type Department Care Team (Late st Contact Info) Description 07/03/2025 8:40 AM CDT Office Visit [facility] Family & Internal Medicine - [place] [address] [place] [address] Edgardo Shultz, DO [address] [place] [address] 07/08/2025 10:40 AM CDT Office Visit [facility] - [facility] 3 [facility], [address] [place] [phone] Phuong Norman NP 3 [facility]. [address] [place], [place] [phone] 07/31/2025 9:45 AM CDT Office Visit [facility] [address] [place] [address] Glory Chatman MD [address] [facility] [address] [place], [place] [phone] 09/29/2025 11:40 AM DANCE MASTER Office Visit [facility] 3 [facility] [address] [place] [phone] Saúl Keyes DO 3 [facility] [address] [place], [place] [phone] documented as of this encounter Goals Goal Patient Goal Type Associated Problems Recent Progress Patient-Stated? Author Health - patient able to perform ADLs independently Lifestyle Marti Marquez, RN documented as of this encounter Visit Diagnoses Not on filedocumented in this encounter Additional Health Concerns Infection Onset Date Last Indicated Resolved Time COVID-19 Rule Out 12/17/2024 12/17/2024 12/17/2024 11:41 AM DANCE MASTER Assessment Noted Time PHQ-9 Depression Total Score: 6 05/12/20 22 2:03 PM CDT documented as of this encounter Care Teams Gun Perforator Relationship Specialty Start Date End Date Edgardo Shultz DO [address] [place] [address] PCP - General FAMILY PRACTICE 10/16/18 Bubba Remy MD 3 [facility] [address] [place] [phone] Consulting Physician CARDIOVASCULAR DISEASE 10/24/23 documented as of this encounter
--- OUTSIDE RECORDS SUMMARY | 2025-06-05 15:39 | XMS_ITS | Encounter Summary ---
Author Organization [facility] - [facility] Address [facility] [place] [address] Care Team Providers Care Plastic Dolls Mold Filler Name Role Phone LexiiEdgardo barrett Anne-Marie HARKINS Primary Care Provider + Bubba Remy MD Unavailable [phone] Encounter Details Date Type Department Care Team (Latest Contact Info) Description 05/13/2025 Retrevo Message Enc [facility] Multispecialty Care - [facility] 3 [facility], [facility] [address] [place] [phone] Image Searcher, [facility] Provider appointment reschedule Social History Tobacco Use Types Packs/Day Years [...] of experiencing loneliness or isolatio n Never 04/04/2024 OASIS [id number]: Transportation Answer Date Recorded Lack of Transportation (Medical) No 04/04/2024 Lack of Transportation (Non-Medical) No 04/04/2024 Patient Unable or Declines to Respond No 04/04/2024 OASIS B1300: Health Literacy Answer Matthieu e Recorded Frequency of needing help to read materials from doctor or pharmacy Rarely 04/04/2024 [facility] Utilities Answer Date Recorded In the past 12 months has e electric, gas, oil, or water company threatened [...] Date Recorded Patient Health Questionnaire-2 Score 0 04/06/2025 Hunger Vital Sign Answer Date Recorded Within the past 12 months, y ou worried that your food would run out before you got the money to buy more. Never true 11/10/20 23 Within the past 12 months, t he [...] place to sleep or slept in a mcc (including now)? 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 Answer Entry Date Author Status No 11/10/2023 4:56 PM Paula Coffman RN Active documented in this encounter Plan of Treatment Upcoming Encounters Date Type Department Care Team (Late st Contact Info) Description 07/03/2025 8:40 AM CDT Office Visit [facility] Family & Internal Medicine [address] [address] Edgardo Shultz, [address] [place] [address] 07/08/2025 10:40 AM CDT [facility] 3 [facility], [address] [place] [phone] Phuong Norman NP 3 [facility]. [address] [place] [address] 07/31/2025 9:45 AM CDT Office Visit [facility] [phone] Glory Chatman MD Three [facility] [address] [place] [address] 09/29/2025 11:40 AM WIRE TURNING MACHINE OPERATOR Office Visit [facility] 3 [facility] [address] [place] [phone] Saúl Keyes DO 3 [facility] [address] [place] [address] documented as of this encounter Goals Goal Patient Goal Type Associated Problems Recent Progress Patient-Stated? Author Health - patient able to perform ADLs independently Lifestyle Marti Marquez RN documented as of this encounter Visit Diagnoses Not on filedocumented in this encounter Additional Health Concerns Assessment Noted Time PHQ-9 Depression Total Score: 6 05/12/20 22 2:03 PM CDT documented as of this encounter Care Teams Plastic Dolls Mold Filler Relationship Specialty Start Date End Date Edgardo Shultz DO [address] [place] [address] PCP - General FAMILY PRACTICE 10/16/18 Bubba Remy MD 3 [facility] [address] [place] [phone] Consulting Physician CARDIOVASCULAR DISEASE 10/24/23 documented as of this encounter
--- OUTSIDE RECORDS SUMMARY | 2025-06-05 15:39 | XMS_ITS | Encounter Summary ---
Author Organization [facility] Address [address] [place] [address] Care Team Providers Care Liqu[employer] Stores [employer]cies Supervisor Name Role Phone LexiiarnoldSullyEdgardo Anne-Marie HARKINS Primary Care Provider + Bubba Remy MD Unavailable [phone] Reason for Visit * Reason Onset Date Comments Medication 06/05/2025 Atorvastatin Encounter Details Date Type Department Care Team (Late st Contact Info) Description 06/05/2025 Patient Outreach [facility] Family & Internal Medicine [address] [phone] Felicia Hollis, metrology engineer Medication (Atorvastatin) Social History Tobacco Use Types Packs/Day Years [...] materials from doctor or pharmacy Rarely 04/04/2024 [facility] Utilities Answer Date Recorded In the past [...] place to sleep or slept in a correction (including now)? 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 3 [facility], [address] [place] [phone] Phuong Norman NP 3 [facility]. [address] [place] [address] 07/31/2025 9:45 AM CDT Office Visit [facility] [address] [phone] Glory Chatman MD [facility] [address] [place] [address] 09/29/2025 11:40 AM AUTOMATIC GLOVE FORMER Office Visit [facility] 3 [facility] [address] [place] [phone] Saúl Keyes DO 3 [facility] [address] [place] [address] documented as of this encounter Goals Goal [...] documented as of this encounter Care Teams [employer] Stores [employer] Agencies Supervisor Relationship Specialty Start Date End Date Edgardo Shultz DO [address] [place] [address] PCP - General FAMILY PRACTICE 10/16/18 Bubba Remy MD 3 [facility] [address] [place] [phone] Consulting Physician CARDIOVASCULAR DISEASE 10/24/23 documented as of this encounter
--- OUTSIDE RECORDS SUMMARY | 2025-06-05 15:39 | XMS_ITS | Encounter Summary ---
Author Organization [facility] Address [facility] [place] [address] Care Team Providers Care Scallop Binder Name Role Phone LexiiheidiSully moodychary Anne-Marie HARKINS Primary Care Provider + Bubba Remy MD Unavailable [phone] Encounter Details Date Type Department Care Team (Latest Contact Info) Description 03/28/2024 Heart Genetics Message Enc [facility] Multispecialty Care - [facility] 3 [facility], [address] [phone] [employer], [facility] Provider Appointment Reminder Social History Tobacco Use Types Packs/Day Years [...] materials from doctor or pharmacy Never 11/21/2023 [facility] Utilities Answer Date Recorded In the past 12 months has [employer] electric, gas, oil, or water company threatened [...] Date Recorded Patient Health Questionnaire-2 Score 0 03/31/2024 Hunger Vital Sign Answer Date Recorded Within [...] place to sleep or slept in a half-way (including now)? 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 Answer Entry Date Author Status No 11/10/2023 4:56 PM SMALL PACKAGE AND BUNDLE SORTER CLERK Paula [place] RN Active documented in this encounter Plan of Treatment Upcoming Encounters Date Type Department Care Team (Late st Contact Info) Description 07/03/2025 8:40 AM CDT Office Visit [facility] - [place] [address] [place] [address] Edgardo Shultz, DO [address] [place] [address] 07/08/2025 10:40 AM CDT Office Visit [facility] 3 [facility], [address] [place] [phone] Phuong Norman NP 3 [facility]. [address] [place], [place] [phone] 07/31/2025 9:45 AM CDT Office Visit [facility] [address] [place] [address] Glory Chatman MD Three [facility] [address] [place], [place] [phone] 09/29/2025 11:40 AM SMALL PACKAGE AND BUNDLE SORTER CLERK Office Visit [facility] 3 [facility]., [address] [place] [phone] Saúl Keyes DO 3 [facility] [address] [place], [place] [address] documented as of this encounter Goals Goal Patient Goal Type Associated Problems Recent Progress Patient-Stated? Author Health - patient able to perform ADLs independently Lifestyle Marti Marquez, RN documented as of this encounter Visit Diagnoses Not on filedocumented in this encounter Additional Health Concerns Infection Onset Date Last Indicated Resolved Time COVID-19 Rule Out 12/17/2024 12/17/2024 12/17/2024 11:41 AM SMALL PACKAGE AND BUNDLE SORTER CLERK Assessment Noted Time PHQ-9 Depression Total Score: 6 05/12/20 22 2:03 PM CDT documented as of this encounter Care Teams Scallop Binder Relationship Specialty Start Date End Date Edgardo Shultz DO [address] [place] [address] PCP - General FAMILY PRACTICE 10/16/18 Bubba Rmey MD 3 [facility] [address] [place] [phone] Consulting Physician CARDIOVASCULAR DISEASE 10/24/23 documented as of this encounter
--- OUTSIDE RECORDS SUMMARY | 2025-06-05 15:39 | XMS_ITS | Encounter Summary ---
Author Organization [facility] Address [facility] [place] [address] Care Team Providers Care Manager Administrative Services Name Role Phone LexiiheidiSully moodychary Anne-Marie HARKINS Primary Care Provider + Bubba Remy MD Unavailable [phone] Encounter Details Date Type Department Care Team (Latest Contact Info) Description 09/02/2024 Voicendo Message Enc [facility] Group Multispecialty [address] [phone] [employer] [place], [facility] Provider APPOINTMENT RESCHEDULED Social History Tobacco Use Types Packs/Day Years [...] materials from doctor or pharmacy Rarely 04/04/[address] [facility] Utilities Answer Date Recorded In the past 12 months has th e electric, gas, oil, or water company [...] place to sleep or slept in a chcf (including now)? 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 [address] [place] [address] 07/31/2025 9:45 AM CDT Office Visit [facility] [phone] Glory Chatman MD Three [facility] [address] [place] [address] 09/29/2025 11:40 AM TYPE DISK QUALITY CONTROL SUPERVISOR [facility] 3 [facility]., [address] [place] [phone] Saúl Keyes DO 3 [facility] [address] [place] [address] documented as of this encounter Goals Goal Patient Goal Type Associated Problems Recent Progress Patient-Stated? Author Health - patient able to perform ADLs independently Lifestyle Marti Marquez RN documented as of this encounter Visit Diagnoses Not on filedocumented in this encounter Additional Health Concerns Infection Onset Date Last Indicated Resolved Time COVID-19 Rule Out 12/17/2024 12/17/2024 12/17/2024 11:41 AM TYPE DISK QUALITY CONTROL SUPERVISOR Assessment Noted Time PHQ-9 Depression Total Score: 6 05/12/20 22 2:03 PM CDT documented as of this encounter Care Teams Manager Administrative Services Relationship Specialty Start Date End Date Edgardo Shultz DO [address] [place] [address] PCP - General FAMILY PRACTICE 10/16/18 Bubba Remy MD [address] [phone] Consulting Physician CARDIOVASCULAR DISEASE 10/24/23 documented as of this encounter
--- OUTSIDE RECORDS SUMMARY | 2025-06-05 15:39 | XMS_ITS | Clinical Summary ---
Author Organization [facility] Address [address] [place] [address] Care Team Providers Care Game Room Attendant Name Role Phone Ramo Benitez Anne-Marie HARKINS Primary Care Provider + Bubba Remy MD Unavailable [phone] Allergies Active Allergy Reactions Criticality Noted Date Comments Sulfamethoxazole-Trime thoprim Other (see comment) 07/25/2022 Possible TATIANA Tape Rash,Other (see comment) Low 10/16/2018 Skin irritation Wound Dressing Adhesive Other (see comment) Low 10/16/2018 Skin irritation Medications Glucose Blood test stripIndications: Diabetes Mellitus Check blood sugar once daily in AM when fasting 100 strip 11 022 Active Blood Glucose Monitoring Suppl (ONE TOUCH ULTRA 2) w/Device KitIndications:Di abetes Mellitus Check blood sugar once daily in AM when fasting 1 kit 022 Active Lancets (ONETOUCH ULTRASOFT) lancetsIndication s:Diabetes Mellitus Check blood sugar once daily in AM when fasting 1 each 11 022 Active PROBIOTIC PRODUCT ORIndications:Vit segovia Deficiency Take 1 tablet by mouth daily. Indications: Vitamin Deficiency Active vitamin B-12 (CYANOCOBALAMIN) (CYANOCOBALAMIN) 1000 mcg tablet Take 2 tablets (2,000 mcg total) by mouth daily. Takes 2000 mcg tablet Active Cholecalciferol (VITAMIN D) 50 MCG (2000 UT) Cap Take 50 mcg by mouth daily. Active gabapentin (NEURONTIN) 100 MG capsuleIndication s:Neuropathy Take 1 capsule (100 mg total) by mouth 3 (three) times daily. 90 capsule 3 023 Active topiramate (TOPAMAX) 100 MG tabletIndications :History of Seizures Take 1 tablet (100 mg total) by mouth 2 (two) times daily. Indications: History of Seizures 180 tablet 1 024 Active atorvastatin (LIPITOR) 80 MG tabletIndications :Hyperlipidemia associated with type 2 diabetes mellitus (CMS/HCC HHS/HCC) Take 1 tablet (80 mg total) by mouth nightly at bedtime. 90 tablet 3 024 Active ezetimibe (ZETIA) 10 MG tablet Take 1 tablet (10 mg total) by mouth daily. 90 tablet 3 024 2024 Active levothyroxine (SYNTHROID) 75 MCG tabletIndications :Hypothyroidism TAKE 1 TABLET (75 MCG TOTAL) BY MOUTH DAILY. INDICATIONS: UNDERACTIVE THYROID 90 tablet 2 024 Active cephALEXin (KEFLEX) 500 MG capsuleIndication s:Antibiotic Therapy Take 1 capsule (500 mg total) by mouth daily. Indications: Infection Treatment 90 capsule 3 024 Active gabapentin (NEURONTIN) 300 MG capsuleIndication s:Chronic low back pain, unspecified back pain laterality, unspecified whether sciatica present Take 1 capsule (300 mg total) by mouth 3 (three) times daily as needed (back pain). 90 capsule 025 Active albuterol (PROVENTIL) (2.5 MG/3ML) 0.083% nebulizer solutionIndicatio ns:Bronchitis Take 3 mLs (2.5 mg total) by nebulization every 6 (six) hours as needed for Wheezing. 360 mL 025 Active metoprolol succinate ER (TOPROL-XL) 25 MG 24 hr tabletIndications :Hypertension TAKE 1 TABLET (25 MG TOTAL) BY MOUTH DAILY. INDICATIONS: HIGH BLOOD PRESSURE DISORDER 30 tablet 4 025 Active omeprazole (PRILOSEC) 40 MG capsuleIndication s:Gastroesophagea l reflux disease, unspecified whether esophagitis present Take 1 capsule (40 mg total) by mouth daily. 30 capsule 2 025 Active ondansetron (ZOFRAN-ODT) 4 MG disintegrating tabletIndications :Nausea TAKE 1 TABLET BY MOUTH EVERY 8 HOURS NEEDED FOR NAUSEA 20 tablet 025 Active Albuterol-Budeson verónica (AIRSUPRA) 90-80 MCG/ACT AerosolIndication s:Mild persistent asthma without complication ([facility]) Inhale 2 puffs into the lungs every 4 (four) hours as needed. 10.7 g 6 025 Active LORazepam (ATIVAN) 1 MG tabletIndications :Anxiety Take 1 tablet (1 mg total) by mouth once as needed for Other ([address] chest). 1 tablet 025 Active aspirin (ASPIRIN LOW DOSE) 81 MG chewable tabletIndications :Anticoagulant Therapy CHEW 1 TABLET BY MOUTH DAILY. 90 tablet 025 Active BREO ELLIPTA 100-25 MCG/ACT inhalerIndication s:COPD (chronic obstructive pulmonary disease) ([facility]),Bronchit is TAKE 1 PUFF BY MOUTH EVERY DAY 60 each 1 025 Active evolocumab (REPATHA SURECLICK) 140 MG/ML injection (PEN)Indications: Mixed hyperlipidemia INJECT THE CONTENTS OF 1 PEN UNDER THE SKIN EVERY 14 DAYS 2 Pen 3 025 Active tirzepatide (MOUNJARO) 5 MG/0.5ML injectionIndicati ons:Type 2 diabetes mellitus with diabetic polyneuropathy, without long-term current use of insulin ([facility]) INJECT 5 MG SUBCUTANEOUSLY EVERY 7 DAYS 6 mL 025 Active predniSONE (DELTASONE) 20 MG tabletIndications :Right Achilles tendinitis Take 3 tablets daily for three days, then take 2 tablets daily for three days, then take 1 tablet daily for three days 18 tablet 025 Active tirzepatide (MOUNJARO) 5 MG/0.5ML injectionIndicati ons:Diabetes Mellitus Inject 5 mg into the skin every 7 days. 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 Hx of CABG 01/04/2024 Sternal wound infection 12/03/2023 Chronic heart failure with p reserved ejection fraction ([facility]) 11/27/2023 Paroxysmal atrial fibrillation ([facility]) 11/27/2023 Surgical site infection 11/12/2023 Elevated brain natriuretic peptide (BNP) level 1 01/11/2023 CAD (coronary artery disease) 10/29/2023 Chest pain, unspecified type 08/28/2023 MGUS (monoclonal gammopathy of unknown significa nce) 11/27/2022 Albuminuria 01/05/2022 Mixed hyperlipidemia 07/28/2021 Disorder characterized by back pain 07/21/2021 Memory loss 12/12/2020 Polyneuropathy due to type 2 diabetes mellitus ([facility]) 11/29/2020 Hyperlipidemia associated wi th type 2 diabetes mellitus ([facility]) 11/29/2020 Vascular headache 06/09/2020 Diastolic dysfunction 06/08/2019 Hypothyroidism, unspecified type 06/08/2019 Stage 3a chronic kidney disease 12/16/2018 Type 2 diabetes mellitus ([facility]) 10/21 Lactose intolerance in adult 10/21/2018 Type 2 diabetes mellitus wit hout complication ([facility]) 10/21/2018 Fatigue, unspecified type 10/31/2016 Vitamin B12 deficiency 10/31/2016 Seizure disorder ([facility]) 08/01/2016 Hypothyroidism 07/31/2016 Polycythemia 07/18/2016 Resolved Problems Problem Noted Date Diagnosed Date Resolved Date Encephalopathy 07/17/2022 04/02/2025 Kidney stone 07/21/2021 04/02/2025 Diarrhea, unspecified type 12/12/2020 1 Lesion of ulnar nerve 06/09/20202021 Essential hypertension 06/08/201908/25 Syncope 06/08/2019 08/25/2022 Slow transit constipation 10/21/2018 Encounters Date Type Department Care Team Description 06/05/2025 Patient Outreach [facility] Family [facility] Internal Medicine [address] [phone] Felicia Hollis, computer applications developer Medication (Atorvastatin) 06/04/2025 Results Follow-Up [facility] Medicine [address] [phone] Ramo Benitez, COMPREHENSIVE METABOLIC PANEL, URIC ACID BLOOD, XR ANKLE RT M3V 05/29/2025 10:00 AM CDT Office Visit [facility] [address] [phone] Ramo Benitez P, DO Ankle Pain (Patient here today with c/o of Rt ankle pain x 3 months, noticed a knot on the back of her ankle. Ice and Elevation does help. ) 05/29/2025 Travel 05/18/2025 Results Follow-Up [facility] Care - [facility] [address] [facility] [place] [phone] Phuong Norman NP CBC W/DIFF AUTOMATED, COMPREHENSIVE METABOLIC PANEL 05/15/2025 10:38 AM CDT - 05/15/2025 11:59 PM CDT Hospital Encounter [facility] [place] [address] Phuong Norman NP Discharge Disposition: Home or Self Care (Routine Discharge) 05/15/2025 Travel 05/14/2025 Telephone [facility] - [facility] [address] [facility], [address] [place] [phone] Phuong Norman NP Lab Order 05/13/2025 Aldera Message Enc [facility] - [facility] [address] [facility] [place] [phone] [facility] Provider appointment reschedule 04/22/2025 Scan [facility] Scanned, [facility] 04/22/2025 Patient Outreach [facility] Family & Internal [address] [phone] Felicia Hollis, computer applications developer Medication (Atorvastatin) 04/20/2025 Results Follow-Up [facility] - [facility] [address] [facility] [place] [address] Sánchez Lundberg, CT LUNG SCREENING 04/09/2025 10:00 AM CDT - 04/09/2025 11:59 PM CDT Hospital Encounter [facility] [address] [place] [address] Sánchez Lundberg, DO Discharge Disposition: Home or Self Care (Routine Discharge) 04/09/2025 Travel 04/06/2025 3:00 PM CDT Office Visit [facility] Family & Internal Medicine [address] [phone] Deena Yu APNP Ear Problem (A specialist told patient today that she needs her left ear needs to be cleaned out.) 04/06/2025 10:00 AM CDT Office Visit [facility] - [facility] [address] [facility], [address] [phone] Phuong Norman NP Infection (Sternal wound infection/) 04/06/2025 9:26 AM CDT - 04/06/2025 11:59 PM CDT Hospital Encounter [facility] [place] [address] Won Renteria MD Discharge Disposition: Home or Self Care (Routine Discharge) 04/06/2025 9:26 AM CDT - 04/06/2025 11:59 PM CDT Hospital Encounter [facility] [place] [address] Ramo Benitez, DO Discharge Disposition: Home or Self Care (Routine Discharge) 04/06/2025 Orders Only [facility] [place] [address] Ramo Benitez, DO 04/06/2025 Orders Only [facility] [address] Won Renteria MD 04/06/2025 Travel 04/03/2025 [place] Message Enc [facility] - [facility] [address] [facility] [place] [phone] [facility] Provider Appointment Reminder 04/02/2025 8:40 AM CDT Office Visit [facility] Medicine [address] [phone] Ramo Benitez, Diabetes (Routine follow up. ); Perspiration (The patient states she is having nightsweats consistantly. The patient saw oncology. They are concerned. She states her numbers are steady at a pre-cancerous range. ); Vomiting (The patient has had 2 episodes of N/V in the past month and states it may be related to mounjaro.) 04/02/2025 Results Follow-Up [facility] Internal [address] [phone] Ramo Benitez DO HEMOGLOBIN, GLYCOSYLATED, CBC W/DIFF AUTOMATED, COMPREHENSIVE METABOLIC PANEL, Additional followed-up results: 7 04/02/2025 Travel 03/31/2025 Telephone [facility] - [address] [phone] Sánchez Lundberg DO Medication 03/27/2025 9:00 AM CDT Office Visit [facility] - [facility] [address] [facility] [place] [phone] Sánchez Lundberg DO New Patient 03/27/2025 Travel 03/13/2025 12:36 PM CDT - 03/13/2025 11:59 PM CDT Hospital Encounter [facility] [place] [address] Phuong Norman NP Discharge Disposition: Home or Self Care (Routine Discharge) 03/13/2025 Travel 03/11/2025 Telephone [facility] Care - [facility] [address] [facility], [address] [place] [phone] Phuong Norman NP Lab Order from Last 3 Months Immunizations Immunization Administration Dates Next Due FLUAD (IIV, Trivalent, 0.5 M L Pre-filled Syringe) 08/04/2024 Fluad influenza vaccine, Gary drivalent (aIIV4), Inactivated, adjuvanted, preservative free, 0.5 mL,IM use 10/20/2023 Fluzone 6 Months+ Quad (0.5 mL Prefilled Syringe) 08/01/2020 Fluzone High Dose - >Age 65 (Prefilled Syringe) 08/28/2022 Influenza (Generic) 08/26/2021 Influenza Adult (Generic) 10/20/2023,08/2022,08/31/2021,2019,08/15/2019 PFIZER COVID-19 (12+) MRNA, LNP-S, PF, ROBBIE-SUCROSE, 30 MCG/0.3 ML (COMIRNATY) 04/02/2025 PFIZER COVID-19 (DIAZ CAP), MRNA, LNP-S, PF, 30 MCG/0.3 ML ROBBIE-SUCROSE, IM 03/27/2022 PFIZER COVID-19 (ORIGINAL FORMULATION, PURPLE CAP) mRNA, LNP-S, PF, 30 MCG/0.3 ML DOSE 09/02/2022,03/27/2022,08/24/2021,2020,01/20/2021 PFIZER COVID-19 BIVALENT (12 +) mRNA, LNP-S, PF, 30 MCG/0.3 ML DOSE 09/02/2022 Pneumococcal (Generic) 10/23/2022 Pneumococcal (Prevnar 20) 10/23/2022 Shingrix 03/12/2023,10/23/2022 Family History Medical History Relation Comments Hypertension Brother AAA Father CABG Father Diabetes Father Heart Disease Father Hypertension Father [place] Father Stroke Father Valve Disease Father Cancer Maternal Grandfather Cancer Maternal Grandmother COPD Mother Hypertension Mother Diabetes Paternal Aunt Cancer Paternal Grandfather Cancer Paternal Grandmother Heart Disease Sister She in 2012 while on the heart transplant list at [place] Sister Stroke Sister Valve Disease Sister Relation Status Comments Brother Father (Age 55) Maternal Grandfather Maternal Grandmother Mother Alive Paternal Aunt Paternal Grandfather Paternal Grandmother Sister Social History Tobacco Use Types Packs/Day Years Used Date Smoking Tobacco: Former Cigarettes 1 15 1 12/16/1998 - 10/16/2014 Passive Smoke Exposure: Never Smokeless Tobacco: Never Tobacco Cessation:Counseling Given: Yes Alcohol Use Standard Drinks/Week Comments Never 0 [...] or pharmacy Rarely 04/04/[address] [facility] Utilities Answer Date Recorded In the past 12 months has th e [employer], gas, oil, or water [employer] threatened to shut off services in your [...] place to sleep or slept in a detention (including now)? 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 [employer] Not on file Not on file Not on file Last Filed Vital Signs Vital Sign Reading Time Taken Comments Blood Pressure 108/58 05/29/2025 10:06 AM CDT Pulse 90 05/29/2025 10:06 AM CDT Temperature 36.4 C (97.5 F) 05/29/2025 10:06 AM CDT Respiratory Rate 16 05/29/2025 10:06 AM CDT Oxygen Saturation 100% 05/29/2025 10:06 AM CDT Inhaled Oxygen Concentration - - Weight 79.7 kg (175 lb 9.6 oz) 05/29/2025 10:06 AM CDT Height 165.1 cm (5' 5) 05/29/2025 10:06 AM CDT Body Mass Index 29.22 05/29/2025 10:06 AM CDT Plan of Treatment Upcoming Encounters Date Type Department Care Team (Late st Contact Info) Description 07/03/2025 8:40 AM CDT Office Visit [facility] Family & Internal Medicine - [address] [phone] Ramo Benitez DO [address] [place] [phone] 07/08/2025 10:40 AM CDT Office Visit [facility] - [facility] [address] [facility] [place] [phone] Phuong Norman NP [address] [facility] [place], [place] [phone] 07/31/2025 9:45 AM CDT Office Visit [facility] [phone] Glory Chatman MD [address] [facility] [address] [place], [place] [address] 09/29/2025 11:40 AM ELA TEACHER Office Visit [facility] - [facility] [address] [facility] [place] [phone] Sánchez Lundberg DO [address] [facility] [address] [place] [id number] Health Maintenance Due Date Last Done Comments Annual Medicare Wellness Visit 2021 Dexa Scan (General) 06/12/2025 03/07/2023 Postpone d from 03/07/2025 (Patient will follow up with PCP) Mammogram Screening 06/12/2025 03/07/2023, 7 Postponed from 03/07/2024 (Elected Alternative Screening/Test) Hemoglobin A1C 10/03/2025 04/02/2025, 11/20, 09/12/2024, Additional history exists DTaP, Tdap and Td Vaccines (1 - Tdap) 04/02/2026 Postponed from 1975 (No Insurance Coverage) RSV Immunization or 60+ Years (1 - Risk 60-74 years 1-dose series) 04/02/2026 Postponed fro m 2016 (Going to Outside Clinic) Kidney Health Evaluation 04/06/2026 04/06/2025 Lipid Panel 04/06/2026 04/06/2025, 08/20, 05/14/2024, Additional history exists Diabetes: Retinopathy Eye Exam 01/30/2027 01/30/2025, 09/16/2021 Colorectal Cancer Screening FIT-DNA (3 Years) 08/01/2027 08/01/2024, 08/01/2024, 05/04/2021, Additional history exists Pneumococcal Vaccine: 50+ Years Completed 10/23/2022 Hepatitis C Completed 11/27/2022 Zoster Vaccines Completed 03/12/2023, 10/23/2022 Colorectal Cancer Screening FIT/FOBT (1 Year) Discontinued 11/14/2023 COVID-19 Vaccine Completed 04/02/2025, , 06/08/2023, Additional history exists PHQ-2 (Physician [place]) Completed 04/06/2025 Meningococcal B Vaccine Aged Out No l onger eligible based on patient's age to complete this topic Meningococcal Vaccine Aged Out No lesa liv eligible based on patient's age to complete this topic RSV Immunizations Under 20 Months Aged Out No longer eligible based on patient's age to complete this topic Goals Goal Patient Goal Type Associated Problems Recent Progress Patient-Stated? Author Health - patient able to perform ADLs independently Lifestyle Marti Marquez RN Medical Devices Implanted Type Area Laboratory Technical Specialist Device Identifier Shelf Expiration Date Model / Serial / Lot Wire Sternotomy Suture Kit - [id number] Implanted:Qty: 1 on 10/29/2023 by Cheng Calderon MD at [facility] Wire N/A: [employer] [id number] 12/20/2027 [id number] / / [id number] Description:Five wires impla nted. Wire Sterum Suture Kit [employer]ire #7 1/2 Ccs-1 - [id number] Implanted:Qty: 2 on 10/29/2023 by Cheng Calderon MD at [facility] Wire N/A: [employer] [id number] 05/19/2028 [id number] / / [id number] Description:Three wires impl anted. Procedures Procedure Name Priority Date/Time Associated Diagnosis Comments URIC ACID BLOOD Routine 05/29/2025 10:37 AM CDT Right Achilles tendinitis COMPREHENSIVE METABOLIC PANEL Routine 05/29/2025 10:37 AM CDT Right Achilles tendinitis XR ANKLE RT M3V Routine 05/29/2025 10:23 AM CDT Right Achilles tendinitis COLLECTION VENOUS BLOOD VENIPUNCTURE Routine 05/29/2025 10:16 AM CDT Right Achilles tendinitis COMPREHENSIVE METABOLIC PANEL Routine 05/15/2025 10:45 AM CDT Stage 3a chronic kidney disease (CMS/HCC) Surgical site infection CBC W/DIFF AUTOMATED Routine 05/15/2025 10:45 AM CDT Stage 3a chronic kidney disease (CMS/HCC) Surgical site infection CT LUNG SCREENING Routine 04/09/2025 10: 14 AM CDT Cigarette nicotine dependence in remission REMOVAL IMPACTED CERUMEN IRRIGATION/LAVAGE UNILAT Routine 04/06/2025 3:00 PM CDT Impacted cerumen of right ear ALBUMIN URINE RANDOM W/CREATININE Routine 04/06/2025 9:43 AM CDT Type 2 diabetes mellitus with diabetic polyneuropathy, without long-term current use of insulin ([facility] HHS/HCC) Vitamin B12 deficiency Vitamin D deficiency Hyperlipidemia associated with type 2 diabetes mellitus ([facility]CC HHS/HCC) Hypothyroidism, unspecified type HC CREATININE OTH SOURCE Routine 04/06/2025 9:43 AM CDT Chronic kidney disease, stage 3b (CMS/HCC) VITAMIN D, 25 OH Routine 04/06/2025 9:36 AM CDT Type 2 diabetes mellitus with diabetic polyneuropathy, without long-term current use of insulin ([facility] HHS/HCC) Vitamin B12 deficiency Vitamin D deficiency Hyperlipidemia associated with type 2 diabetes mellitus ([facility]CC HHS/HCC) Hypothyroidism, unspecified type PHOSPHORUS, INORGANIC PHOSPHATE Routine 04/06/2025 9:36 AM CDT Chronic kidney disease, stage 3b (CMS/HCC) PTH - INTACT Routine 04/06/2025 9:36 AM CDT Chronic kidney disease, stage 3b (CMS/HCC) METANEPHRINES FRACTIONATED PLASMA Routine 04/06/2025 9:36 AM CDT Type 2 diabetes mellitus with diabetic polyneuropathy, without long-term current use of insulin ([facility]CC HHS/HCC) Vitamin B12 deficiency Vitamin D deficiency Hyperlipidemia associated with type 2 diabetes mellitus ([facility]CC HHS/HCC) Hypothyroidism, unspecified type Night sweats THYROXINE, FREE (FT4) Routine 04/06/2025 9:36 AM CDT Type 2 diabetes mellitus with diabetic polyneuropathy, without long-term current use of insulin ([facility]CC HHS/HCC) Vitamin B12 deficiency Vitamin D deficiency Hyperlipidemia associated with type 2 diabetes mellitus ([facility]CC HHS/HCC) Hypothyroidism, unspecified type THYROID STIM HORMONE TSH Routine 04/06/2025 9:36 AM CDT Type 2 diabetes mellitus with diabetic polyneuropathy, without long-term current use of insulin ([facility]) Vitamin B12 deficiency Vitamin D deficiency Hyperlipidemia associated with type 2 diabetes mellitus ([facility] HHS/HCC) Hypothyroidism, unspecified type VITAMIN B-12 Routine 04/06/2025 9:36 AM CDT Type 2 diabetes mellitus with diabetic polyneuropathy, without long-term current use of insulin ([facility]) Vitamin B12 deficiency Vitamin D deficiency Hyperlipidemia associated with type 2 diabetes mellitus ([facility] HHS/HCC) Hypothyroidism, unspecified type LIPID PANEL Routine 04/06/2025 9:36 AM CDT Type 2 diabetes mellitus with diabetic polyneuropathy, without long-term current use of insulin ([facility]) Vitamin B12 deficiency Vitamin D deficiency Hyperlipidemia associated with type 2 diabetes mellitus ([facility] HHS/HCC) Hypothyroidism, unspecified type COMPREHENSIVE METABOLIC PANEL Routine 04/06/2025 9:36 AM CDT Type 2 diabetes mellitus with diabetic polyneuropathy, without long-term current use of insulin ([facility]) Vitamin B12 deficiency Vitamin D deficiency Hyperlipidemia associated with type 2 diabetes mellitus ([facility] HHS/HCC) Hypothyroidism, unspecified type CBC W/DIFF AUTOMATED Routine 04/06/2025 9:36 AM CDT Type 2 diabetes mellitus with diabetic polyneuropathy, without long-term current use of insulin ([facility]) Vitamin B12 deficiency Vitamin D deficiency Hyperlipidemia associated with type 2 diabetes mellitus ([facility] [facility] HHS/HCC) Hypothyroidism, unspecified type COLLECT.CAPILLARY (FNGR,HEEL,EAR) Routine 04/02/2025 8:43 AM CDT Type 2 diabetes mellitus with diabetic polyneuropathy, without long-term current use of insulin ([facility]) HEMOGLOBIN, GLYCOSYLATED Routine 04/02/2025 Type 2 diabetes mellitus with diabetic polyneuropathy, without long-term current use of insulin ([facility]) COMPREHENSIVE METABOLIC PANEL Routine 03/13/2025 12:42 PM CDT Stage 3a chronic kidney disease (CMS/HCC) Surgical site infection CBC W/DIFF AUTOMATED Routine 03/13/2025 12:42 PM CDT Stage 3a chronic kidney disease (CMS/HCC) Surgical site infection DIABETIC RETINOPATHY EXAM (NEGATIVE)(SCAN ORDER) Routine 01/30/2025 COLOGUARD (EXACT SCIENCE) Routine 08/01/2024 2:00 PM CDT Screening for malignant neoplasm of colon OCCULT BLOOD, FECES Routine 11/14/2023 1 1:10 AM ELA TEACHER BONE DENSITY GENERIC (SCAN ORDER) 03/07/2023 MAMMOGRAM GENERIC (SCAN ORDER) 03/07/2023 HEPATITIS C ANTIBODY Routine 11/27/2022 1:35 PM ELA TEACHER Type 2 diabetes mellitus with diabetic polyneuropathy, without long-term current use of insulin Stage 3a chronic kidney disease Hyperlipidemia associated with type 2 diabetes mellitus Need for hepatitis C screening test from Last 3 Months or Most Recently Relevant to Health Maintenance Results * (ABNORMAL) COMPREHENSIVE METABOLIC PANEL (05/29/2025 10:37 AM CDT) Only the most recent of4 resultswithin the time period is included. SODIUM S/P/B 145 136 - 145 MMOL/L 05/29/2025 5:09 PM CDT [facility] POTASSIUM S/P/B 4.1 3.5 - 5.1 MMOL/L 05/29/2025 5:09 PM CDT [facility] CHLORIDE S/P/B 108(H) 98 - 107 MMOL/L 05/29/2025 5:09 PM CDT [facility] CO2 27.0 21 - 32 MMOL/L 05/29/2025 5:09 PM CDT [facility] GLUCOSE 125(H) 70 - 99 MG/DL 05/29/2025 5:09 PM CDT [facility] BUN 31(H) 7 - 18 MG/DL 05/29/2025 5:09 PM [facility] CREATININE S/P/B 1.71(H) 0.55 - 1.02 MG/DL 05/29/2025 5:09 PM [facility] CALCIUM S/P/B 9.2 8.4 - 10.5 MG/DL 05/29/2025 5:09 PM [facility] BILIRUBIN TOTAL S/P/B 0.3 0.2 - 1.0 MG/DL 05/29/2025 5:09 PM [facility] ALKALINE PHOSPHATASE S/P/B 96 55 - 142 U/L 05/29/2025 5:09 PM [facility] AST 13(L) 15 - 37 U/L 05/29/2025 5:09 PM [facility] ALT 15 14 - 59 U/L 05/29/2025 5:09 PM T [facility] TOTAL PROTEIN S/P/B 6.9 6.4 - 8.2 G/DL 05/29/2025 5:09 PM [facility] ALBUMIN S/P/B 3.6 3.4 - 5.0 G/DL 05/29/2025 5:09 PM [facility] ANION GAP 10.0 5 - 15 MMOL/L 05/29/2025 5:09 PM [facility] Comment:REFERENCE RANGE NOT ESTABLISHED OSMOLALITY (CALC) 308 MOSM/KG 025 5:09 PM T [facility] Comment:REFERENCE RANGE NOT ESTABLISHED GFR ESTIMATE 32(L) >90 ML/MIN/1. 73 M2 05/29/2025 5:09 PM [facility] GFR NOTES GFR REFERENCE S: 05/29/2025 5:09 PM [facility] Comment: THE ESTIMATED GFR IS CALCULATED USING THE 2020 CKD-EPI EQUATION. THE FOLLOWING CATEGORIES FOR GRADING RENAL FUNCTION ARE RECOMMENDED BY THE INTERNATIONAL SOCIETY OF NEPHROLOGY (KDIGO 2012 CLINICAL PRACTICE GUIDELINE). G1,NORMAL OR HIGH: >89 ml/min/1.73 m2 G2,MILDLY DECREASED: 60-89 ml/min/1.73 m2 G3A,MILDLY TO MODERATELY DECREASED: 45-59 ml/min/1.73 m2 G3B,MODERATELY TO SEVERELY DECREASED: 30-44 ml/min/1.73 m2 G4,SEVERELY DECREASED: 15-29 ml/min/1.73 m2 G5,KIDNEY FAILURE: <15 ml/min/1.73 m2 05/29/2025 10:3 7 AM CDT Ramo Benitez DO LABORATORY Final Re sult Performing Organization Address [facility] de Phone Number [address] [address], [place] [phone] * (ABNORMAL) URIC ACID BLOOD (05/29/2025 10:37 AM CDT) URIC ACID 8.3(H) 2.6 - 6.0 MG/DL 05/29/2025 4:25 PM CDT [facility] 05/29/2025 10:3 7 AM CDT Ramo Benitez DO LABORATORY Final Re sult Performing Organization Address [facility] Co de Phone Number [address] [address], [place] [phone] * XR ANKLE RT M3V (05/29/2025 10:23 AM CDT) Anatomical Region Laterality Modality Ankle Radiographic Dian ging 05/29/2025 10:3 2 AM CDT Impressions 05/29/2025 10:32 AM CDT IMPRESSION: No acute findings Ordered By: RAMO BENITEZ Interpreted By: Umesh Morgan MD, 05/29/2025 10:32 AM Narrative 05/29/2025 10:32 AM CDT [facility] [place] [address] 3 VIEWS OF THE RIGHT ANKLE Clinical History: Pain Comparison: None Findin views of the right ankle demonstrate the bony elements to be intact. There is no evidence of fracture or dislocation. The ankle mortise is symmetric. The surrounding soft tissues appear normal. Procedure Note Umesh Morgan MD - 05/29/2025 [facility] [place] [address] 3 VIEWS OF THE RIGHT ANKLE Clinical History: Pain Comparison: None Findin views of the right ankle demonstrate the bony elements to be intact.There is no evidence of fracture or dislocation. The ankle mortise issymmetric. The surrounding soft tissues appear normal. IMPRESSION: No acute findings Ordered By: RAMO BENITEZ Interpreted By: Umesh Morgan MD, 05/29/2025 10:32 AM Ramo Benitez DO GENERAL IMAGING Final Re sult * (ABNORMAL) CBC W/DIFF AUTOMATED (05/15/2025 10:45 AM CDT) Only the most recent of3 resultswithin the time period is included. WBC 5.39 4.5 - 11.0 x10'3/uL 05/15/2025 11:[address] [facility] RBC 4.05(L) 4.20 - 5.40 x10'6/uL 05/15/2025 11:[address] [facility] HGB 12.7 12.0 - 16.0 G/DL 05/15/2025 11:[address] [facility] HCT 38.9 38.0 - 48.0 % 05/15/2025 11:[address] [facility] MCV 96.0 81.0 - 99.0 FL 05/15/2025 11:[address] [facility] MCH 31.4(H) 27.0 - 31.0 PG 05/15/2025 11:[address] [facility] MCHC 32.6 32.0 - 36.0 G/DL 05/15/2025 11:[address] [facility] RDW 12.3 11.5 - 14.5 % 05/15/2025 11:[address] [facility] PLT 247 130 - 400 x10'3/uL 05/15/2025 11:[address] [facility] MPV 10.3 9.3 - 12.2 FL 05/15/2025 11:[address] [facility] DIFFERENTIAL TYPE AUTOMATED DIFFERENTIAL 05/15/2025 11:[address] [facility] NEUTROPHILS % 59.3 % 05/15/2025 11:[address] [facility] LYMPHOCYTES % 27.8 % 05/15/2025 11:[address] [facility] MONOCYTES % 5.8 % 05/15/2025 11:[address] [facility] EOSINOPHILS 6.3 % 05/15/2025 11:[address] [facility] BASOPHILS 0.4 % 05/15/2025 11:[address] [facility] IMMATURE GRANS % 0.4 % 05/15/20 11:[address] [facility] ABS. NEUTROPHILS 3.20 1.80 - 7.70 x10'3/uL 05/15/2025 11:[address] [facility] ABS. LYMPHOCYTES 1.50 1.00 - 4.80 x10'3/uL 05/15/2025 11:[address] [facility] ABS. MONOCYTES 0.31 0.24 - 0.86 x10'3/uL 05/15/2025 11:[address] [facility] ABS. EOSINOPHILS 0.34 0.04 - 0.36 x10'3/uL 05/15/2025 11:[address] [facility] ABS. BASOPHILS 0.02 0.01 - 0.08 x10'3/uL 05/15/2025 11:[address] [facility] ABS. IMMATURE GRANULOCYTES 0.02 0.00 - 0.49 x10'3/uL 05/15/2025 11:[address] [facility] 05/15/2025 10:4 5 AM CDT Phuong Norman NP LABORATORY Final Result [facility] [address] [place] [address], * CT LUNG SCREENING (04/09/2025 10:14 AM CDT) Anatomical Region Laterality Modality Chest Computed Tomogra phy 04/19/2025 4:38 PM CDT Impressions 04/19/2025 4:44 PM CDT IMPRESSION: 1. Lung-RADS Category 2: Benign appearance or behavior. Nodules with a very low likelihood of becoming a clinically active cancer due to size or lack of growth. 2. LUNG-RADS category S: Negative, no new/unknown potentially significant incidental findings requiring urgent additional evaluation. 3. Other incidental findings as above. RECOMMENDATIONS: Follow-up LDCT Chest in 12 months (on or around 04/09/2026). Referred By: SÁNCHEZ LUNDBERG Interpreted By: Joshua Castellano MD, 04/19/2025 4:38 PM Narrative 04/19/2025 4:[address] [address] EXAM: LUNG SCREENING LOW-DOSE CT THORAX WITHOUT CONTRAST DATE: 04/09/2025 10:03 AM HISTORY: Asymptomatic patient meeting NCCN high-risk criteria for lung screening. COMPARISON: 11/12/2023 TECHNIQUE: Noncontrast, helical, low-dose CT (LDCT) chest per standard departmental protocol. Automated exposure control was utilized for dose reduction. FINDINGS: Lung Screening Specific (LUNG-RADS): 2.9 mm right middle lobe nodule axial image 117. Stable. Lung RADS 2. 6.3 x 13.8 mm branching right middle lobe nodule (average diameter 9 mm) axial image 63. Stable. Lung RADS 2. Potentially Significant Incidentals (LUNG-RADS category S): None Pulmonary Incidentals: Calcified granulomas indicate healed granulomatous disease. Other Incidentals: Extrapulmonary soft tissues tissue evaluation significantly limited due to low- dose technique. Atherosclerosis. Prior CABG. Small hiatal hernia. Scattered degenerative changes of the spine. Procedure Note Joshua Castellano MD - 04/19/[address] [address] EXAM: LUNG SCREENING LOW-DOSE CT THORAX WITHOUT CONTRAST DATE: 04/09/2025 10:03 AM HISTORY: Asymptomatic patient meeting NCCN high-risk criteria for lungscreening. COMPARISON: 11/12/2023 TECHNIQUE: Noncontrast, helical, low-dose CT (LDCT) chest per standarddepartmental protocol. Automated exposure control was utilized for dosereduction. FINDINGS: Lung Screening Specific (LUNG-RADS): 2.9 mm right middle lobe nodule axial image 117. Stable. Lung RADS 2. 6.3 x 13.8 mm branching right middle lobe nodule (average diameter 9 mm)axial image 63. Stable. Lung RADS 2. Potentially Significant Incidentals (LUNG-RADS category S): None Pulmonary Incidentals: Calcified granulomas indicate healed granulomatousdisease. Other Incidentals: Extrapulmonary soft tissues tissue evaluation significantly limited due tolow- dose technique. Atherosclerosis. Prior CABG. Small hiatal hernia. Scattereddegenerative changes of the spine. IMPRESSION: 1. Lung-RADS Category 2: Benign appearance or behavior. Nodules with lissy low likelihood of becoming a clinically active cancer due to size orlack of growth. 2. LUNG-RADS category S: Negative, no new/unknown potentially significantincidental findings requiring urgent additional evaluation. 3. Other incidental findings as above. RECOMMENDATIONS: Follow-up LDCT Chest in 12 months (on or around04/09/2026). Referred By: SÁNCHEZ LUNDBERG Interpreted By: Joshua Castellano MD, 04/19/2025 4:38 PM Sánchez Lundberg DO CT Final Resu lt * REMOVAL IMPACTED CERUMEN IRRIGATION/LAVAGE UNILAT (04/06/2025 3:00 PM CDT) Narrative Deena Yu APNP - 04/06/2025 3:00 PM CDT SYMONE Brewer 04/06/2025 3:01 PM *Ear Cerumen Removal Date/Time: 04/06/2025 3:00 PM Performed by: SYMONE Brewer Authorized by: SYMONE Brewer Anesthesia: Local Anesthetic: none Location details: left ear and right ear Patient tolerance: patient tolerated the procedure well with no immediate complications Procedure type: irrigation Sedation: Patient sedated: no Deena ASHBY PROCEDURE/MINOR SURGICAL OR DERABLES Final Result * (ABNORMAL) PROTEIN CREAT RATIO URINE (04/06/2025 9:43 AM CDT) PROTEIN URINE TOTAL RANDOM 49.5(H) <10 MG/DL 04/06/2025 10:37 AM CDT [facility] CREATININE (U) 135.0 28 - 217 MG/DL 04/06/2025 10:[address] [facility] PROTEIN/CREATIN INE RATIO 0.4 04/06/2025 10:[address] [facility] URINE SPECIMEN / Unknown 04/06/2025 9:43 AM CDT Won Renteria MD URINE ORDERABLES Final Result Performing Organization Address City/[facility] Co de Phone Number [facility] [address] [place] [address], [place] [phone] * (ABNORMAL) ALBUMIN URINE RANDOM W/CREATININE (04/06/2025 9:43 AM CDT) CREATININE (U) 135.0 28 - 217 MG/DL 04/06/2025 10:[address] [facility] MICROALBUMIN (U) 28.7(H) <2.0 mg/dL 04/06/2025 10:[address] [facility] ALBUMIN/CREAT RATIO 212.6(H) <30 MG/G 04/06/2025 10:[address] [facility] URINE SPECIMEN / Unknown 04/06/2025 9:43 AM CDT Ramo Benitez DO URINE ORDERABLES Final R esult Performing Organization Address City/[facility]/ZIP Co de Phone Number [facility] [address] [place] [address], [place] [phone] * METANEPHRINES FRACTIONATED PLASMA (04/06/2025 9:36 AM CDT) METANEPHRINE FREE S/P/B 41 <=57 pg/mL 04/10/2025 5:02 AM CDT [employer] DANI MARTIN Comment: This test was developed and its analytical performance characteristics have been determined by [employer] [place], [place]. It has not been cleared or approved by the U.S. Food and Drug Administration. This assay has been validated pursuant to the CLIA regulations and is used for clinical purposes. NORMETANEPHRINE FREE S/P/B 84 <=148 pg/mL 04/10/2025 5:02 AM CDT [facility] VERONICA Comment: This test was developed and its analytical performance characteristics have been determined by [employer] [place]. It has not been cleared or approved by the U.S. Food and Drug Administration. This assay has been validated pursuant to the CLIA regulations and is used for clinical purposes. METANEPHRINES TOTAL PLASMA 125 <=205 pg/mL 04/10/2025 5:02 AM CDT [employer] VERONICA Comment: For additional information, please refer to http://education.FwdHealth/faq/MetFractFree (This link is being provided for informational/educatio informational/educational purposes only.) Elevations >4-fold upper reference range: strongly suggestive of a pheochromocytoma(1). Elevations >1- 4-fold upper reference range: significant but not diagnostic, may be due to medications or stress. Suggest running 24 hr urine fractionated metanephrines and/or serum Chromagranin A for confirmation. Reference: (1)Vivian Love et al, Plasma Chromogranin A or Urine Fractionated Metanephrines Follow-Up Testing Improves the Diagnostic Accuracy of Plasma Fractionated Metanephrines for Pheochromocytoma. The Journal of Clinical Endocrinology # Metabolism 93(1), 91-95, 2008. This test was developed and its analytical performance characteristics have been determined by [employer]. It has not been cleared or approved by the U.S. Food and Drug Administration. This assay has been validated pursuant to the CLIA regulations and is used for clinical purposes. Test Performed by [employer] [place], [employer] [place], [address] [place] [address] Prasad Pham M.D., Ph.D., Director of Laboratories , CLIA [id number] 04/06/2025 9:36 AM CDT Ramo Benitez DO LABORATORY Final Re sult [facility] [address] [place] [address], [place] [phone] * (ABNORMAL) PTH - INTACT (04/06/2025 9:36 AM CDT) PTH INTACT 104.8(H) 18.4 - 80.1 PG/ML 04/06/2025 10:[address] [facility] 04/06/2025 9:36 AM CDT Won Renteria MD LABORATORY Final Result Performing Organization Address City/[facility] Co de Phone Number [facility] [address] [place] [address], [place] [phone] * (ABNORMAL) VITAMIN B-12 (04/06/2025 9:36 AM CDT) VITAMIN B12 S/P/B 2,203(H) 254 - 1,320 PG/ML 04/06/2025 11:[address] [facility] 04/06/2025 9:36 AM CDT us Ramo Benitez DO LABORATORY Final Re sult Performing Organization Address City/[facility]/ZIP Co de Phone Number [facility] [address] [place] [address], [place] [phone] * (ABNORMAL) LIPID PANEL (04/06/2025 9:36 AM CDT) CHOLESTEROL 112 <200 MG/DL 04/06/2025 10:[address] [facility] TRIGLYCERIDES 137 <150 MG/DL 04/06/2025 10:[address] [facility] HDL 39(L) >40.0 MG/DL 04/06/2025 10:[address] [facility] LDL (CALCULATED) 46 <100 MG/DL 04/06/20 10:[address] [facility] NON HDL CHOLESTEROL 73 <130 MG/DL 04/06 10:[address] [facility] CHOL/HDL RATIO 2.9 0.0 - 4.5 04/06/2025 10:[address] [facility] VLDL CALCULATION 27 5 - 55 MG/DL 04/06/2025 10:[address] [facility] LIPID INTERPRETATION 04/06/2025 10:[address] [facility] Comment: NIH CONCENSUS REPORT RECOMMENDATIONS: ADULT CHILD LOW RISK: CHOLESTEROL <200 <170 TRIGLYCERIDE <150 --- HDL >=60 --- LDL <100 <110 BORDERLINE: CHOLESTEROL 200-239 170-199 TRIGLYCERIDE 150-199 --- HDL 40-59 --- LDL 100-159 110-129 HIGH RISK: CHOLESTEROL >=240 >=200 TRIGLYCERIDE >=200 --- HDL <40 --- LDL >=160 >=130 04/06/2025 9:36 AM CDT us Ramo Benitez DO LABORATORY Final Re sult [facility] [address] [place] [address], * THYROXINE, FREE (FT4) (04/06/2025 9:36 AM CDT) FREE T4 1.05 0.76 - 1.46 NG/DL 04/06/2025 10:[address] [facility] 04/06/2025 9:36 AM CDT Ramo Benitez DO LABORATORY Final Re sult Performing Organization Address City/[facility]/ZIP Co de Phone Number [facility] [address] [place] [address], * (ABNORMAL) THYROID STIM HORMONE TSH (04/06/2025 9:36 AM CDT) TSH 5.640(H) 0.358 - 3.74 uIU/ML 04/06/2025 10:[address] [facility] Comment: HIGH DOSES OF BIOTIN MAY INTERFERE WITH THIS TEST RESULT. CORRELATION TO CLINICAL HISTORY AND PRESENTATION RECOMMENDED. 04/06/2025 9:36 AM CDT Ramo Benitez DO LABORATORY Final Re sult Performing Organization Address City/[facility]/ZIP Co de Phone Number [facility] [address] [place] [address], * PHOSPHORUS, INORGANIC PHOSPHATE (04/06/2025 9:36 AM CDT) PHOSPHORUS 3.2 2.5 - 4.9 MG/DL 04/06/2025 10:[address] [facility] 04/06/2025 9:36 AM CDT Won Renterai MD LABORATORY Final Result [facility] [address] [place] [address], * VITAMIN D, 25 OH (04/06/2025 9:36 AM CDT) VITAMIN D 25 HYDROXY S/P/B 44 30 - 100 NG/ML 04/06/2025 12:[address] [facility] Comment: INTERPRETATION DEFICIENT <20 INSUFFICIENT 20-29 SUFFICIENT 30-100 04/06/2025 9:36 AM CDT Ramo Benitez DO LABORATORY Final Re sult Performing Organization Address City/[facility]/ZIP Co de Phone Number [facility] [address] [place] [address], [place] [phone] * HEMOGLOBIN, GLYCOSYLATED (04/02/2025) Pathologist [facility] HGB A1C 5.1 % [facility] 04/02/2025 us Ramo P Lucmargo DO LABORATORY Final Re sult Performing Organization Address [facility]/ZIP Co de Phone Number [facility] [address] [place] [address], [place] * DIABETIC RETINOPATHY EXAM (NEGATIVE) (01/30/2025) [facility] Scanned SCANNING Final Resu lt Performing Organization Address City/[facility] Co de Phone Number [facility] * COLOGUARD (EXACT SCIENCE) (08/01/2024 2:00 PM CDT) COLOGUARD RESULT Negative Negative [employer] (CLIA #:[id number]) Comment: NEGATIVE TEST RESULT. A negative Cologuard result indicates a low likelihood that a colorectal cancer (CRC) or advanced adenoma (adenomatous polyps with more advanced pre-malignant features) is present. The chance that a person with a negative Cologuard test has a colorectal cancer is less than 1 in 1500 (negative predictive value >99.9%) or has an advanced adenoma is less than 5.3% (negative predictive value 94.7%). These data are based on a prospective cross-sectional study of 10,000 individuals at average risk for colorectal cancer who were screened with both Cologuard and colonoscopy. (Bony Bonilla al, N Engl J Med 2014;370(14):1729-5902) The normal value (reference range) for this assay is negative. COLOGUARD RE-SCREENING RECOMMENDATION: Periodic colorectal cancer screening is an important part of preventive healthcare for asymptomatic individuals at average risk for colorectal cancer. Following a negative Cologuard result, the [place] Cancer Society and U.S. Multi-Society Task Force screening guidelines recommend a Cologuard re-screening interval of 3 years. References: [employer] Society Guideline for Colorectal Cancer Screening: https://www.cancer.org/cancer/blzso-xkzvku-ismhva/yqzobwvto-lfdhewtho-atqzeav/ac s-rec ommendations.html.; Yoshi DK, Fabiana ARREDONDO, Anne PortilloK, Colorectal Cancer Screening: Recommendations for Physicians and Patients from the U.S. Multi-Society Task Force on Colorectal Cancer Screening , Am J Gastroenterology 2017; 112:2067-5575. TEST DESCRIPTION: Composite algorithmic analysis of stool DNA-biomarkers with hemoglobin immunoassay. Quantitative values of individual biomarkers are not reportable and are not associated with individual biomarker result reference ranges. Cologuard is intended for colorectal cancer screening of adults of either sex, 45 years or older, who are at average-risk for colorectal cancer (CRC). Cologuard has been approved for use by the U.S. FDA. The performance of Cologuard was established in a cross sectional study of average-risk adults aged 50-84. Cologuard performance in patients ages 45 to 49 years was estimated by sub-group analysis of near-age groups. Colonoscopies performed for a positive result may find as the most clinically significant lesion: colorectal cancer [4.0%], advanced adenoma (including sessile serrated polyps greater than or equal to 1cm diameter) [20%] or non- advanced adenoma [31%]; or no colorectal neoplasia [45%]. These estimates are derived from a prospective cross-sectional screening study of 10,000 individuals at average risk for colorectal cancer who were screened with both Cologuard and colonoscopy. (Bony Bonilla al, N Engl J Med 2014;370(14):1943-9207.) Cologuard may produce a false negative or false positive result (no colorectal cancer or precancerous polyp present at colonoscopy follow up). A negative Cologuard test result does not guarantee the absence of CRC or advanced adenoma (pre-cancer). The current Cologuard screening interval is every 3 years. ([employer] Cancer Society and U.S. Multi-Society Task Force). Cologuard performance data in a 10,000 patient pivotal study using colonoscopy as the reference method can be accessed at the following location: www.[employer].com/results. Additional description of the Cologuard test process, warnings and precautions can be found at www.cologuard.com. STOOL STOOL SPECIMEN / Unknown 08/01/2024 2:00 PM CDT 08/02/2024 12:10 PM CDT Ramo Benitez DO BODY FLUIDS AND STOOLS O RDERABLES Final Result Performing Organization Address City/[facility]/ZIP Co de Phone Number [employer], [facility] [address] [place] [address], [place] [phone] [employer] (CLIA #:[id number]) [address] [phone] * OCCULT BLOOD, FECES (11/14/2023 11:10 AM ELA TEACHER) OCCULT BLOOD FECAL NEGATIVE 11/14/2023 11:[address] [facility] STOOL SPECIMEN / Unknown 11/14/2023 11:10 AM ELA TEACHER Donna Harrison MD BODY FLUIDS AND STOOLS ORD ERABLES Final Result Performing Organization Address City/[facility]/ZIP Co de Phone Number [facility] [address] [place] [address], [place] [phone] * BONE DENSITY GENERIC (03/07/2023) Anatomical Region Laterality Modality Other 03/07/2023 [facility] Scanned SCANNING Final Resu lt * MAMMOGRAM GENERIC (03/07/2023) Anatomical Region Laterality Modality Other 03/07/2023 [facility] Scanned SCANNING Final Resu lt * HEPATITIS C ANTIBODY ([facility] ONLY) (11/27/2022 1:35 PM ELA TEACHER) HEPATITIS C AB NON-REACTI VE NON-REACT VIKTORIA 11/27/2022 9:34 PM ELA TEACHER [facility] Comment: ANTIBODIES TO HCV NOT DETECTED. DOES NOT EXCLUDE THE POSSIBILITY OF EXPOSURE TO HCV. 11/27/2022 1:35 PM ELA TEACHER Ramo Benitez DO LABORATORY Final Re sult [facility] [address] [place] [address], [id number] from Last 3 Months or Most Recently Relevant to Health Maintenance Insurance [employer] Advance Directives Documents on File Type Date Recorded Patient Interventional Nurse Expl anation Advance Directives and Living Will 10/29/2023 Power of Manager Respiratory 10/29/2023 * Full Code (Latest Code Status on File) Date Activated Date Inactivated Comments 11/23/2023 2:08 PM * Full Code Date Activated Date Inactivated Comments 11/14/2023 4:53 PM 11/20/2023 6:08 PM * Full Code Date Activated Date Inactivated Comments 11/10/2023 3:07 PM 11/14/2023 4:53 PM * Full Code Date Activated Date Inactivated Comments 11/06/2023 9:50 AM 11/06/2023 1:37 PM * Full Code Date Activated Date Inactivated Comments 10/29/2023 4:04 PM 11/03/2023 1:26 PM Care Teams Game Room Attendant Relationship Specialty Start Date End Date Ramo Benitez DO [address] [place] [id number] PCP - General FAMILY PRACTICE 10/16/18 Bubba Remy MD [address] [phone] Consulting Physician CARDIOVASCULAR DISEASE 10/24/23
--- OUTSIDE RECORDS SUMMARY | 2025-06-05 15:39 | XMS_ITS | Encounter Summary ---
Author Organization [facility] Address [address] [place] [address] Phone Care Team Providers Care Quality Assistant Name Role Phone Edgardo Shultz Primary Care Provide r Emile Barbour MD Unavailable [phone] Olman Cisneros MD Unavailable [phone] Encounter Details Date Type Department Care Team (Latest Contact Info) Description 01/31/2023 Orders Only [facility] Scanning, Provider Social History Tobacco Use Types Packs/Day Years Used Date Smoking Tobacco: Former Cigarettes 2016 Smokeless Tobacco: Never Alcohol Use Standard Drinks/Week Comments Never 0 (1 standard drink = 0.6 oz pur e alcohol) AUDIT-C Answer Date Recorded Q1: How often do you have a drink containing alc ohol? Never 06/09/2020 Average Number of Drinks Not on file 020 Frequency of Binge Drinking Not on file 05/20 Comments Unknown Sex and Gender Information Value Date Recorded Sex Assigned at Not on file Legal Sex Female 7:44 AM CDT Gender Identity Not on file Sexual Orientation Not on file Occupation Industry Job Start Date Job End Date Retired Not on file Not on file Not on file documented as of this encounter Plan of Treatment Not on file documented as of this encounter Procedures Procedure Name Priority Date/Time Associated Diagnosis Comments SCAN - LABS 01/31/2023 documented in this encounter Results * SCAN - LABS (01/31/2023) us Provider Scanning Final Result documented in this encounter Visit Diagnoses Not on filedocumented in this encounter Care Teams Quality Assistant Relationship Specialty Start Date End Date LexiiheidifransiscoEdgardo DO [employer] PCP - General Family Medicine 05/25/19 Emile Barbour MD [address] [place] [address] Referring Physician Hematology 11/28/22 Olman Cisneros MD [address] [place] [address] Medical Oncologist/Ambulatory Care Medical Oncology 12/01/22 documented as of this encounter
--- OUTSIDE RECORDS SUMMARY | 2025-06-05 15:39 | XMS_ITS | Encounter Summary ---
Author Organization [facility] Address [facility] [place] [address] Care Team Providers Care Bolt Man Name Role Phone LexiiheidiSully moodychary Anne-Marie HARKINS Primary Care Provider + Bubba Remy MD Unavailable [phone] Encounter Details Date Type Department Care Team (Latest Contact Info) Description 08/13/2024 [facility] Message Enc [facility] Multispecialty [address] [address] [address], [facility] Provider Appointment reminder Social History Tobacco Use Types Packs/Day Years [...] materials from doctor or pharmacy Rarely 04/04/2024 [facility] Utilities Answer Date Recorded In the past [...] Sex Assigned at Female 12/12/2024 11:05 AM MORTGAGE SALES MANAGER Legal Sex Female 11:21 AM MORTGAGE SALES MANAGER Gender Identity Female 12/15/2024 10:33 AM MORTGAGE SALES MANAGER Sexual Orientation Straight 01/05/2025 10 :13 AM MORTGAGE SALES MANAGER 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, [address] [place] [phone] Phuong Norman NP 3 [facility]. [address] [place] [address] 07/31/2025 9:45 AM CDT Office Visit [facility] [phone] Glory Chatman MD [address] [facility] [address] [place] [address] 09/29/2025 11:40 AM MORTGAGE SALES MANAGER [facility] [place] [facility] [address] [facility] [address] [place] [phone] Saúl Keyes DO 3 [facility] [address] [place] [address] documented as of this encounter Goals Goal Patient Goal Type Associated Problems Recent Progress Patient-Stated? Author Health - patient able to perform ADLs independently Lifestyle Marti Marquez RN documented as of this encounter Visit Diagnoses Not on filedocumented in this encounter Additional Health Concerns Infection Onset Date Last Indicated Resolved Time COVID-19 Rule Out 12/17/2024 12/17/2024 12/17/2024 11:41 AM MORTGAGE SALES MANAGER Assessment Noted Time PHQ-9 Depression Total Score: 6 05/12/20 22 2:03 PM CDT documented as of this encounter Care Teams Bolt Man Relationship Specialty Start Date End Date Edgardo Shultz DO [address] [place] [address] PCP - General FAMILY PRACTICE 10/16/18 Bubba Remy MD [address] [address] Consulting Physician CARDIOVASCULAR DISEASE 10/24/23 documented as of this encounter
--- OUTSIDE RECORDS SUMMARY | 2025-06-05 15:39 | XMS_ITS | Referral Summary ---
Author Organization [facility] [place] [address] Address [address] [place] [address] Care Team Providers Care Slitting Machine Feeder Name Role Phone Edgardo Shultz DO Primary Care Provide r Emile Barbour MD Unavailable [phone] Olman Cisneros MD Unavailable [phone] Encounters Date Type Department Care Team Description 03/30/2025 8:30 AM CDT Lab [facility] [place] - Lab Collection [address] [place] [id number] Monoclonal gammopathy 03/30/2025 8:00 AM CDT Lab [facility] [address] [place] [phone] 03/30/2025 9:00 AM CDT Office Visit [facility] Bone Marrow Transplant [address] [place] [phone] Olman Cisneros MD Monoclonal gammopathy from Last 3 Months Allergies Active Allergy Reactions Criticality Noted Date Comments Adhesive Other (See comments) Low 10/16/2018 Skin irritation Other reaction(s): Other (See Comments) Skin irritation Other reaction(s): Other (See Comments) Skin irritation Skin irritation Medications traMADoL (ULTRAM) 50 mg tabletIndications: Pain in joint involving right ankle and foot Take 1 tablets every 6 hours as needed for pain. 30 tablet 0 Active glipizide-metformi n (METAGLIP) 2.5-250 mg per tablet Take 2 tablets by mouth 2 (two) times a day 1 Active losartan (COZAAR) 25 mg tablet Take 2 tablets (50 mg total) by mouth daily 2 Active ondansetron ODT (ZOFRAN-ODT) 4 mg disintegrating tablet 2 Active gabapentin (NEURONTIN) 300 mg capsule Take 1 capsule (300 mg total) by mouth 3 (three) times a day as needed 2 Active sulfamethoxazole-t rimethoprim (BACTRIM DS) 800-160 mg per tablet Take 1 tablet by mouth 2 (two) times a day 2 Active rosuvastatin (CRESTOR) 5 mg tabletIndications: Monoclonal gammopathy Take 1 tablet (5 mg total) by mouth daily Active Mounjaro 7.5 mg/0.5 mL pen injectorIndication s:Monoclonal gammopathy Inject 0.5 mL (7.5 mg total) under the skin once a week 3 Active Nurtec ODT tablet,disintegrat ingIndications:Mon oclonal gammopathy DISSOLVE 1 TABLET ON THE TONGUE 1 TIME NEEDED FOR MIGRAINE HEADACHE 3 Active Aimovig Autoinjector 140 mg/mL auto-injectorIndic ations:Monoclonal gammopathy 3 Active diazePAM (VALIUM) 2 mg tabletIndications: Monoclonal gammopathy TAKE 1 TABLET BY MOUTH ABOUT 15 MINUTES BEFORE MRI. CAN REPEAT DOSE IF NEEDED 3 Active cyanocobalamin (Vitamin B-12) 1,000 mcg tabletIndications: Monoclonal gammopathy Take 1 tablet (1,000 mcg total) by mouth daily Active cholecalciferol (VITAMIN D-3) 2000 unit capsuleIndications :Monoclonal gammopathy Take by mouth daily Active B.animalis,bifid,i nfantis,long (PROBIOTIC 4X ORAL)Indications:M onoclonal gammopathy Take by mouth Activ e lancets miscIndications:Mo noclonal gammopathy Check blood sugar once daily in AM when fasting 2 Active blood-gluc,BP meter,adult cuff deviceIndications: Monoclonal gammopathy Check blood sugar once daily in AM when fasting 2 Active amiodarone (PACERONE) 200 mg tabletIndications: Monoclonal gammopathy Take 1 tablet (200 mg total) by mouth daily 4 Active aspirin 81 mg chewable tabletIndications: Monoclonal gammopathy Take 1 tablet (81 mg total) by mouth daily 4 Active atorvastatin (LIPITOR) 40 mg tabletIndications: Monoclonal gammopathy Take 1 tablet (40 mg total) by mouth daily 4 Active ferrous sulfate ER 324 mg (65 mg iron) EC tabletIndications: Monoclonal gammopathy Take 1 tablet (324 mg total) by mouth 2 times daily 3 Active HYDROcodone-acetam inophen (NORCO) 5-325 mg per tabletIndications: Monoclonal gammopathy TAKE 1 TABLET BY MOUTH EVERY 6 HOURS NEEDED FOR ACUTE PAIN LESS THAN 7 DAY SUPPLY 4 Active levothyroxine (SYNTHROID) 75 mcg tabletIndications: Monoclonal gammopathy Take 1 tablet (75 mcg total) by mouth vender before breakfast 4 Active metoprolol XL (TOPROL-XL) 50 mg extended release tabletIndications: Monoclonal gammopathy Take 1 tablet (50 mg total) by mouth daily 4 Active Repatha SureClick 140 mg/mL pen injectorIndication s:Monoclonal gammopathy INJECT THE CONTENTS OF 1 PEN UNDER THE SKIN EVERY 14 DAYS 5 Active albuterol 2.5 mg /3 mL (0.083 %) nebulizer solutionIndication s:Monoclonal gammopathy Inhale 3 mL (2.5 mg total) every 6 (six) hours as needed 5 Active Breo Ellipta 100-25 mcg/dose diskus inhalerIndications :Monoclonal gammopathy Inhale 1 puff daily 5 Active omeprazole (PriLOSEC) 40 mg capsuleIndications :Monoclonal gammopathy Take 1 capsule (40 mg total) by mouth daily 5 Active topiramate (TOPAMAX) 100 mg tabletIndications: Monoclonal gammopathy Take 1 tablet (100 mg total) by mouth 2 (two) times a day 5 Active Airsupra 90-80 mcg/actuation HFA aerosol inhalerIndications :Monoclonal gammopathy Inhale 2 puffs every 4 (four) hours as needed 5 Active Active Problems Problem Noted Date Diagnosed Date MGUS (monoclonal gammopathy of unknown significa nce) 03/06/2023 Adhesive capsulitis of shoulder 06/09/2020 Closed fracture of lateral malleolus 06/09/2020 Closed fracture of head of radius 06/09/2020 Fracture of forearm 06/09/2020 Fracture of lower leg 06/09/2020 Hip pain 06/09/2020 Lesion of ulnar nerve 06/09/2020 Low back pain 06/09/2020 Orthopedic aftercare 06/09/2020 Shoulder joint pain 06/09/2020 Sprain of ankle 06/09/2020 Urinary tract infectious disease 06/09/2020 Vascular headache 06/09/2020 Essential hypertension 06/08/2019 Grade I diastolic dysfunction 06/08/2019 History of seizures 06/08/2019 Hypothyroidism 06/08/2019 Syncope 06/08/2019 CKD (chronic kidney disease) stage 3, GFR 30-59 ml/min 12/16/2018 Lactose intolerance in adult 10/21/2018 Slow transit constipation 10/21/2018 Type 2 diabetes mellitus without complication 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 Immunizations Immunization Administration Dates Next Due Influenza, Quadrivalent, Spl it, Intramuscular 08/15/2019 Influenza, Quadrivalent, Spl it, Preservative Free, Intramuscular 08/01/2020,09/16/2018 Influenza, Trivalent, IM (MDV) 4,11/19/2013,08/04/2013,09/16 Influenza, Trivalent, Preser vative Free, Intramuscular 08/01/2016,08/17/2015 Influenza, Unspecified 08/28/2022,2020,08/26/2021,08/01 Pfizer SARS-CoV-2 Monovalent Vaccination (12+ Yrs) PURPLE 09/02/2022,03/27/2022 Pneumococcal, Unspecified 10/23/2022 Social History Tobacco Use Types Packs/Day Years Used Date Smoking Tobacco: Former Cigarettes 2016 Passive Smoke Exposure: Past Smokeless Tobacco: Never Tobacco Cessation:Counseling Given: Not Answered Alcohol Use Standard Drinks/Week Comments Never 0 [...] Sign Reading Time Taken Comments Blood Pressure 113/64 03/30/2025 8:25 AM CDT Pulse 84 03/30/2025 8:25 AM CDT Temperature 36.4 C (97.5 F) 03/30/2025 8:25 AM CDT Respiratory Rate 16 03/30/2025 8:25 AM CDT Oxygen Saturation 99% 03/30/2025 8:25 AM CDT Inhaled Oxygen Concentration - - Weight 82.6 kg (182 lb) 03/30/2025 8:25 AM CDT Height 166 cm (5' 5.35) 03/30/2025 8:25 AM CDT Body Mass Index 29.96 03/30/2025 8:25 AM CDT Plan of Treatment Not on file Procedures Procedure Name Priority Date/Time Associated Diagnosis Comments EGFR Routine 03/30/2025 8:06 AM CDT Monoclonal gammopathy DIFFERENTIAL AUTO Routine 03/30/2025 8:0 6 AM CDT Monoclonal gammopathy CBC WITH AUTO DIFFERENTIAL Routine 03/30/2025 8:06 AM CDT Monoclonal gammopathy COMPREHENSIVE METABOLIC PANEL Routine 03/30/2025 8:06 AM CDT Monoclonal gammopathy IGA Routine 03/30/2025 8:06 AM CDT Monoclonal gammopathy IGG Routine 03/30/2025 8:06 AM CDT Monoclonal gammopathy IGM Routine 03/30/2025 8:06 AM CDT Monoclonal gammopathy IMMUNOGLOBULIN FREE LIGHT CHAINS Routine 03/30/2025 8:06 AM CDT Monoclonal gammopathy LACTATE DEHYDROGENASE Routine 03/30/2025 8:06 AM CDT Monoclonal gammopathy PROTEIN ELECTROPHORESIS, WITH REFLEX, SERUM Routine 03/30/2025 8:06 AM CDT Monoclonal gammopathy TNI WITH LIPID PANEL Routine 12/03/2020 12:45 PM [employer]AF[employer]Y [employer]STRUCTION POLICE OFFICER from Last 3 Months or Most Recently Relevant to Health Maintenance Results * (ABNORMAL) eGFR (03/30/2025 8:06 AM CDT) eGFR 44(L) >=60 mL/min/1. 73 m2 Comment: Interpretive Data Reference Interval Normal >/= 90 mL/min/1.73m2 Mildly decreased* 60 - 89 mL/min/1.73m2 Mildly to moderately decreased 45 - 59 mL/min/1.73m2 Moderately to severely decreased 30 - 44 mL/min/1.73m2 Severely decreased 15 - 29 mL/min/1.73m2 Kidney Failure < 15 mL/min/1.73m2 *Relative to young adult level Estimated glomerular filtration rate is determined by the 2020 CKD-EPI equation recommended by the National Kidney Foundation (A Unifying Approach to GFR Estimation: Recommendations of the NKF-ASK Task Force on Reassessing the Inclusion of Race in Diagnosing Kidney Disease, JASN 2020). The CKD-EPI equation should not be used for patients with unstable renal function and has not been validated in children and those over 70. Current interpretive data was last reviewed 2021. Blood 03/30/2025 8:06 AM CDT 03/30/2025 8:25 AM CDT us Olman Cisneros MD LAB BLOOD ORDERABLES Fi nal Result [facility] [place] [address] * Differential, auto (03/30/2025 8:06 AM CDT) Neutrophil abs 4.63 1.50 - 6.50 K/cumm Comment:Testing performed by : [facility], [address] [place] [phone] Lymphocyte abs 1.19 0.80 - 3.30 K/cumm [facility] Comment:Testing performed by : [facility], [address] [place] [phone] Monocyte abs 0.38 0.20 - 0.80 K/cumm [facility] Comment:Testing performed by : [facility], [address] [place], [place] [id number] Eosinophil abs 0.17 0.00 - 0.50 K/cumm [facility] Comment:Testing performed by : [facility], [address] [place] [address] Basophil abs 0.02 0.00 - 0.10 K/cumm [facility] Comment:Testing performed by : [facility], [address] [place], [place] [phone] Neutrophil pct 72.5 % [facility] Comment: Interpretive Data Percent cell count reference ranges are not reported, since discordance with absolute values may lead to misinterpretation of CBC data. Current Interpretive Data was last revised on 2018. Testing performed by: [facility], [address] [place] [phone] Lymphocyte pct 18.7 % [facility] Comment: Interpretive Data Percent cell count reference ranges are not reported, since discordance with absolute values may lead to misinterpretation of CBC data. Current Interpretive Data was last revised on 2018. Testing performed by: [facility], [address] [place] [phone] Monocyte pct 5.9 % [facility] Comment: Interpretive Data Percent cell count reference ranges are not reported, since discordance with absolute values may lead to misinterpretation of CBC data. Current Interpretive Data was last revised on 2018. Testing performed by: [facility], [address] [place] [phone] Eosinophil pct 2.7 % [facility] Comment: Interpretive Data Percent cell count reference ranges are not reported, since discordance with absolute values may lead to misinterpretation of CBC data. Current Interpretive Data was last revised on 2018. Testing performed by: [facility], [facility] [place] [address] Basophil pct 0.2 % [facility] Comment: Interpretive Data Percent cell count reference ranges are not reported, since discordance with absolute values may lead to misinterpretation of CBC data. Current Interpretive Data was last revised on 2018. Testing performed by: [facility], [facility] [place] [address] Blood 03/30/2025 8:06 AM CDT 03/30/2025 8:23 AM CDT us Olman Cisneros MD LAB BLOOD ORDERABLES Fi nal Result [facility] Department [place] [address] * (ABNORMAL) Immunoglobulin free light chains (03/30/2025 8:06 AM CDT) Middleton/Lambda ratio [facility] 1.26 0.26 - 1.65 Comment: Interpretive Data The Binding Site FreeLite assay procedure was used. Results from different manufacturers or methods may not be comparable. Serial testing should be performed using the same methods and instrumentation. Current Interpretive Data was last revised on 2024. Middleton free light chain BJ 3.66(H) 0.33 - 1.94 mg/dL [facility] Comment: Interpretive Data The Binding Site FreeLite assay procedure was used. Results from different manufacturers or methods may not be comparable. Serial testing should be performed using the same methods and instrumentation. Current Interpretive Data was last revised on 2024. Lambda free light chain BJ 2.90(H) 0.57 - 2.63 mg/dL [facility] Comment: Interpretive Data The Binding Site FreeLite assay procedure was used. Results from different manufacturers or methods may not be comparable. Serial testing should be performed using the same methods and instrumentation. Current Interpretive Data was last revised on 2024. Blood 03/30/2025 8:06 AM CDT 03/30/2025 9:42 AM CDT us Olman Cisneros MD LAB BLOOD ORDERABLES Fi nal Result [facility] Department [place] [address] * CBC with auto differential (03/30/2025 8:06 AM CDT) WBC 6.39 3.80 - 9.90 K/cumm Comment:Testing performed by : [facility], [address] [place] [address] Hgb 12.8 11.9 - 15.5 g/dL [facility] Comment:Testing performed by : [facility], [address] [place] [address] Hct 38.6 35.6 - 45.5 % [facility] Comment:Testing performed by : [facility], [address] [place] [address] Plt 231 150 - 400 K/cumm [facility] Comment:Testing performed by : [facility], [address] [place] [address] MPV 8.5 6.8 - 10.4 fL [facility] Comment:Testing performed by : [facility], [address] [place] [address] RBC 4.14 3.90 - 5.20 M/cumm [facility] Comment:Testing performed by : [facility], [address] [place] [address] MCV 93.2 81.3 - 96.4 fL [facility] Comment:Testing performed by : [facility], [address] [place] [address] MCH 30.9 27.1 - 33.3 pg [facility] Comment:Testing performed by : [facility], [address] [place] [address] MCHC 33.1 32.3 - 35.7 g/dL [facility] Comment:Testing performed by : [facility], [address] [place] [phone] RDW CV 12.9 11.1 - 14.9 % [facility] Comment:Testing performed by : [facility], [address] [place] [phone] NRBC abs 0.00 0.00 - 0.01 K/cumm [facility] Comment:Testing performed by : [facility], [address] [place] [phone] Blood 03/30/2025 8:06 AM CDT 03/30/2025 8:23 AM CDT us Olman Cisneros MD LAB BLOOD ORDERABLES Fi nal Result [facility] Department [place] [address] * (ABNORMAL) Protein electrophoresis with reflex, serum with interpretation (03/30/2025 8:06 AM CDT) Protein, sr 6.5 6.2 - 8.2 g/dL Albumin 3.6 3.2 - 5.0 g/dL [facility] Alpha-1 globulin 0.3 0.2 - 0.4 g/dL [facility] Alpha-2 globulin 0.8 0.5 - 1.0 g/dL [facility] Beta-1 globulin 0.4 0.3 - 0.6 g/dL [facility] Beta-2 globulin 0.5 0.2 - 0.6 g/dL [facility] Gamma globulin 0.9 0.5 - 1.7 g/dL [facility] Rstr Pk Gamma 0.2(H) 0.0 - 0.0 g/dL [facility] SPEP interp Please see comment [facility] Comment: Abnormal restricted peak in Gamma region Electrophoretic pattern appears similar to previous sample 03/19/2024 Reviewed and signed by Moustapha Aly MD, PhD 03/31/2025 Blood 03/30/2025 8:06 AM CDT 03/30/2025 9:42 AM CDT us Olman Cisneros MD LAB BLOOD ORDERABLES Fi nal Result Performing Organization Address City/[facility] de Phone Number [facility] [place] [address] * Lactate dehydrogenase (LD) (03/30/2025 8:06 AM CDT) Lactate dehydrogenase (LDH) 171 100 - 250 Units/L Blood 03/30/2025 8:06 AM CDT 03/30/2025 8:25 AM CDT us Olman Cisneros MD LAB BLOOD ORDERABLES Fi nal Result Performing Organization Address [facility] de Phone Number [facility] [place] [address] * IgA (03/30/2025 8:06 AM CDT) Immunoglobulin A 332 70 - 400 mg/dL Blood 03/30/2025 8:06 AM CDT 03/30/2025 8:58 AM CDT us Olman Cisneros MD LAB BLOOD ORDERABLES Fi nal Result Performing Organization Address [facility] [place] [address] * IgM (03/30/2025 8:06 AM CDT) Immunoglobulin M 64 40 - 230 mg/dL Blood 03/30/2025 8:06 AM CDT 03/30/2025 8:58 AM CDT us Olman Cisneros MD LAB BLOOD ORDERABLES Fi nal Result [facility] Department [place] [address] * IgG (03/30/2025 8:06 AM CDT) Pathologist [facility] Immunoglobulin G 958 700 - 1,600 mg/dL Blood 03/30/2025 8:06 AM CDT 03/30/2025 8:58 AM CDT Olman Cisneros MD LAB BLOOD ORDERABLES Fi nal Result [facility] Department [place] [address] * (ABNORMAL) Comprehensive metabolic panel (03/30/2025 8:06 AM CDT) [facility] Sodium 144 135 - 145 mmol/L Potassium, pl 4.3 3.3 - 4.9 mmol/L [facility] Chloride 108 97 - 110 mmol/L [facility] CO2 27 22 - 32 mmol/L [facility] Anion gap 9 2 - 15 mmol/L [facility] BUN 20 6 - 25 mg/dL [facility] Creatinine 1.33(H) 0.60 - 1.10 mg/dL [facility] Glucose 149 70 - 199 mg/dL [facility] Comment: Interpretive Data Fasting glucose >/= 126 mg/dl is diagnostic for diabetes. Fasting is defined as no caloric intake for at least 8 hours. Fasting glucose between 100 mg/dl to 125 mg/dl is diagnostic of prediabetes. In a patient with classic symptoms of hyperglycemia or hyperglycemic crisis, a random glucose >/= 200 mg/dl is diagnostic for diabetes. In the absence of unequivocal hyperglycemia, results should be confirmed by repeat testing. The classification and Diagnosis of Diabetes Diabetes Care 202; 46: S19-S40. Current interpretive data was last revised 2022. Calcium 8.9 8.5 - 10.3 mg/dL [facility] Bilirubin, total 0.3 0.1 - 1.2 mg/dL [facility] Protein, pl 6.9 6.5 - 8.5 g/dL [facility] Albumin 3.8 3.5 - 5.0 g/dL [facility] Alk phos 98 40 - 130 Units/L [facility] ALT 6(L) 7 - 45 Units/L [facility] AST 14 10 - 45 Units/L [facility] Blood 03/30/2025 8:06 AM CDT 03/30/2025 8:25 AM CDT us Olman Cisneros MD LAB BLOOD ORDERABLES Fi nal Result Performing Organization Address City/[facility]/ZIP Co de Phone Number [facility] Department [place] [address] * (ABNORMAL) TNI with LIPID PANEL (12/03/2020 12:45 PM SAFETY INSTRUCTION POLICE OFFICER) Troponin I <0.300 0.000 - 0.300 ng/mL [facility] Comment: Reference using CHELSEY Chemiluminescence Negative: Repeat in 4-6 hours as indicated. Triglycerides 425(H) 0 - 149 mg/dL [facility] Comment: LDL(measured) to follow due to Triglycerides >250 mg/dL. National Lipid Association/NCEP Guidelines: Normal < 150 mg/dL Borderline high 150-199 mg/dL High 200-499 mg/dL Very High >=500 mg/dL Cholesterol 272(H) 0 - 199 mg/dL [facility] Comment: National Lipid Association/NCEP Guidelines: Desirable < 200 mg/dL Borderline high: 200-239 mg/dL High Risk: >=240 mg/dL HDL Cholesterol 35 mg/dL [facility] Comment: Reference Ranges: Males: >=40 mg/dL Females: >=50 mg/dL Cholesterol/HDL Ratio 7.8 [facility] Comment: Optimal < 3.5:1 High > 5:1 12/03/2020 12:4 5 PM SAFETY INSTRUCTION POLICE OFFICER 12/03/2020 1:25 PM SAFETY INSTRUCTION POLICE OFFICER Narrative Resulting Agency Comment ER us [facility] LAB BLOOD ORDERABLES Edited Re sult - Final [facility] [address] [place] [address], [facility] [phone] from Last 3 Months or Most Recently Relevant to Health Maintenance Insurance [facility] MEDICARE [facility] MEDICARE [facility] MEDICARE Care Teams Slitting Machine Feeder Relationship Specialty Start Date End Date Edgardo Shultz DO PCP - General Family Medicine 05/25/19 Emile Barbour MD [address] [place] [address] Referring Physician Hematology 11/28/22 Olman Cisneros MD [address] [place] [address] Medical Oncologist/Addiction Nurse Medical Oncology 12/01/22
--- OUTSIDE RECORDS SUMMARY | 2025-06-05 15:39 | XMS_ITS | Clinical Summary ---
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 Encounters Date Type Department Care Team Description 03/30/2025 9:00 AM CDT Office Visit [facility] Bone Marrow Transplant [facility] Floor 6 [place] [phone] Olman Cisneros MD Monoclonal gammopathy 03/30/2025 8:30 AM CDT Lab [facility] - Lab Collection [facility]0 [facility] Floor 6 [place] [address] Monoclonal gammopathy 03/30/2025 8:00 AM CDT Lab [facility] Oncology Lab [address] [place] [address] 6 [place] [address] from Last 3 Months Immunizations Immunization Administration Dates Next Due Influenza, Quadrivalent, Spl it, Intramuscular 08/15/2019 Influenza, Quadrivalent, Spl it, Preservative Free, Intramuscular 08/01/2020,09/16/2018 Influenza, Trivalent, IM (MDV) 4,11/19/2013,08/04/2013,09/16 Influenza, Trivalent, Preser vative Free, Intramuscular 08/01/2016,08/17/2015 Influenza, Unspecified 08/28/2022,2020,08/26/2021,08/01 Pfizer SARS-CoV-2 Monovalent Vaccination (12+ Yrs) PURPLE 09/02/2022,03/27/2022 Pneumococcal, Unspecified 10/23/2022 Surgical History Surgery Date Site/Laterality Comments KNEE SURGERY Medical History Medical History Date Comments Migraines Diabetes mellitus (HCC) Seizures (HCC) Family History Medical History Relation Name Comments Clotting disorder Father Heart disease Father Stroke Father Clotting disorder Mother Relation Name Status Comments Father Mother Social History Tobacco Use Types Packs/Day Years Used Date Smoking Tobacco: Former Cigarettes 1 2016 Passive Smoke Exposure: Past Smokeless Tobacco: [...] file Not on file Not on file Obstetrics History Last Filed Vital Signs Vital Sign Reading [...] 03/30/2025 8:25 AM CDT Plan of Treatment Health Maintenance Due Date Last Done Comments Albumin Creatinine Ratio, Urine 1956 Breast Cancer Screening-Mammogram 1956 Colon Cancer Screening-Colonoscopy 1956 Depression Screening 1956 Fall Risk Assessment 1956 Hemoglobin A1C 1956 Hepatitis C Screening 1956 Osteoporosis Screening-Bone Density Scan 1956 Dilated Eye Exam 1956 Foot Exam 1956 DTaP/Tdap/Td Vaccine (1 - Tdap) 1967 Hepatitis B Screening 1974 Pneumococcal vaccine 65+ (1 of 2 - PCV) 1975 10/23/2022 Well Visit 65+ 2021 Covid-19 Vaccine (5 - 2023-2 5 season) 2024 09/02/2022, 03/27/2022, 08/17/2021, Additional history exists Influenza Vaccine (#1) 2025 , 10/20/2023, 08/28/2022, Additional history exists Lipid Panel 09/15/2025 09/15/2024, 10/20, 11/27/2022, Additional history exists eGFR 03/30/2026 03/30/2025, 02/19, 09/04/2023, Additional history exists Zoster Vaccine Completed 03/12/2023, 10/23/2022 Procedures Procedure Name Priority Date/Time Associated Diagnosis [...] WITH LIPID PANEL Routine 12/03/2020 12:45 PM ENVIRONMENTAL SCIENCE TECHNICIAN from Last 3 Months or Most Recently Relevant to Health Maintenance Results * (ABNORMAL) eGFR (03/30/2025 8:06 AM CDT) [facility] eGFR 44(L) >=60 mL/min/1. 73 m2 Comment: [...] LAB BLOOD ORDERABLES Fi nal Result NKECHI DOSHI [facility] Department [place] [address] * Differential, auto (03/30/2025 8:06 AM CDT) [facility] Neutrophil abs 4.63 1.50 - 6.50 K/cumm Comment:Testing performed by : [facility]e [facility], [address] [place] [phone] Lymphocyte abs 1.19 0.80 - 3.30 K/cumm NKECHI DOSHI Comment:Testing performed by : [facility], [address] [place] [phone] Monocyte abs 0.38 0.20 - 0.80 K/cumm NKECHI DOSHI Comment:Testing performed by : [facility], [address] [place] [phone] Eosinophil abs 0.17 0.00 - 0.50 K/cumm [facility] Comment:Testing performed by : [facility], [address] [place] [phone] Basophil abs 0.02 0.00 - 0.10 K/cumm [facility] Comment:Testing performed by : [facility], [address] [place] [address] Neutrophil pct 72.5 % [facility] Comment: Interpretive Data Percent cell count reference ranges are not reported, since discordance with absolute values may lead to misinterpretation of CBC data. Current Interpretive Data was last revised on 2018. Testing performed by: [facility], [address] [place] [address] Lymphocyte pct 18.7 % [facility] Comment: Interpretive Data Percent cell count reference ranges are not reported, since discordance with absolute values may lead to misinterpretation of CBC data. Current Interpretive Data was last revised on 2018. Testing performed by: [facility], [address] [place] [phone] Monocyte pct 5.9 % [facility] Comment: Interpretive Data Percent cell count reference ranges are not reported, since discordance with absolute values may lead to misinterpretation of CBC data. Current Interpretive Data was last revised on 2018. Testing performed by: [facility], [address] [place] [address] Eosinophil pct 2.7 % [facility] Comment: Interpretive Data Percent cell count reference ranges are not reported, since discordance with absolute values may lead to misinterpretation of CBC data. Current Interpretive Data was last revised on 2018. Testing performed by: [facility], [address] [place] [phone] Basophil pct 0.2 % [facility] Comment: Interpretive Data Percent cell count reference ranges are not reported, since discordance with absolute values may lead to misinterpretation of CBC data. Current Interpretive Data was last revised on 2018. Testing performed by: [facility], [address] [place] [phone] Blood 03/30/2025 8:06 AM CDT 03/30/2025 8:23 AM CDT Olman Cisneros MD LAB BLOOD ORDERABLES Fi nal Result Performing Organization Address [facility] de Phone Number [facility] [place] [address] * (ABNORMAL) Immunoglobulin free light chains (03/30/2025 8:06 AM CDT) [place]/Lambda ratio [facility] 1.26 0.26 - 1.65 Comment: Interpretive Data The Binding Site FreeLite assay procedure was used. Results from different manufacturers or methods may not be comparable. Serial testing should be performed using the same methods and instrumentation. Current Interpretive Data was last revised on 2024. [place] free light chain [facility] 3.66(H) 0.33 - 1.94 mg/dL [facility] Comment: Interpretive Data The Binding Site FreeLite assay procedure was used. Results from different manufacturers or methods may not be comparable. Serial testing should be performed using the same methods and instrumentation. Current Interpretive Data was last revised on 2024. Lambda free light chain [facility] 2.90(H) 0.57 - 2.63 mg/dL [facility] Comment: Interpretive Data The Binding Site FreeLite assay procedure was used. Results from different manufacturers or methods may not be comparable. Serial testing should be performed using the same methods and instrumentation. Current Interpretive Data was last revised on 2024. Blood 03/30/2025 8:06 AM CDT 03/30/2025 9:42 AM CDT Olman Cisneros MD LAB BLOOD ORDERABLES Fi nal Result Performing Organization Address [facility] Co de Phone Number [facility] [place] [address] * CBC with auto differential (03/30/2025 8:06 AM CDT) WBC 6.39 3.80 - 9.90 K/cumm Comment:Testing performed by : [facility], [address] [place], [place] [phone] Hgb 12.8 11.9 - 15.5 g/dL [facility] Comment:Testing performed by : [facility], [address] [place], [place] [phone] Hct 38.6 35.6 - 45.5 % [facility] Comment:Testing performed by : [facility], [address] [place], [place] [phone] Plt 231 150 - 400 K/cumm CERNER [facility] Comment:Testing performed by : [facility], [address] [place], [place] [phone] MPV 8.5 6.8 - 10.4 fL [facility] Comment:Testing performed by : [facility], [address] [place], [place] [phone] RBC 4.14 3.90 - 5.20 M/cumm CERNER [facility]J Comment:Testing performed by : [facility], [address] [place], [place] [phone] MCV 93.2 81.3 - 96.4 fL [facility] Comment:Testing performed by : [facility], [address] [place], [place] [phone] MCH 30.9 27.1 - 33.3 pg [facility] Comment:Testing performed by : [facility], [address] [place] [address] MCHC 33.1 32.3 - 35.7 g/dL [facility] Comment:Testing performed by : [facility], [address] [place] [address] RDW CV 12.9 11.1 - 14.9 % [facility] Comment:Testing performed by : [facility], [address] [place] [address] NRBC abs 0.00 0.00 - 0.01 K/cumm CERNER [facility]J Comment:Testing performed by : [facility], [address] [place] [address] Blood 03/30/2025 8:06 AM CDT 03/30/2025 8:23 AM CDT Olman Cisneros MD LAB BLOOD ORDERABLES Fi nal Result [facility] Department [place] [address] * (ABNORMAL) Protein electrophoresis with reflex, serum with interpretation (03/30/2025 8:06 AM CDT) Protein, sr 6.5 6.2 - 8.2 g/dL Albumin 3.6 3.2 - 5.0 g/dL [facility] Alpha-1 globulin 0.3 0.2 - 0.4 g/dL [facility] Alpha-2 globulin 0.8 0.5 - 1.0 g/dL [facility] Beta-1 globulin 0.4 0.3 - 0.6 g/dL [facility] Beta-2 globulin 0.5 0.2 - 0.6 g/dL [facility] Gamma globulin 0.9 0.5 - 1.7 g/dL [facility] Rstr Pk Gamma 0.2(H) 0.0 - 0.0 g/dL [facility] SPEP interp Please see comment [facility] Comment: Abnormal restricted peak in Gamma region Electrophoretic pattern appears similar to previous sample 03/19/2024 Reviewed and signed by Moustapha Aly MD, PhD 03/31/2025 Blood 03/30/2025 8:06 AM CDT 03/30/2025 9:42 AM CDT us Olman Cisneros MD LAB BLOOD ORDERABLES Fi nal Result NKECHI [facility] Department [place] [address] * Lactate dehydrogenase (LD) (03/30/2025 8:06 AM CDT) Pathologist [facility] Lactate dehydrogenase (LDH) 171 100 - 250 Units/L Blood 03/30/2025 8:06 AM CDT 03/30/2025 8:25 AM CDT us Olman Cisneros MD LAB BLOOD ORDERABLES Fi nal Result Performing Organization Address [facility] de Phone Number [facility] of [employer] [place] [address] * IgA (03/30/2025 8:06 AM CDT) Pathologist [facility] Immunoglobulin A 332 70 - 400 mg/dL Blood 03/30/2025 8:06 AM CDT 03/30/2025 8:58 AM CDT us Olman Cisneros MD LAB BLOOD ORDERABLES Fi nal Result Performing Organization Address [facility] de Phone Number [facility] [employer] [place] [address] * IgM (03/30/2025 8:06 AM CDT) Pathologist [facility] Immunoglobulin M 64 40 - 230 mg/dL Blood 03/30/2025 8:06 AM CDT 03/30/2025 8:58 AM CDT us Olman Cisneros MD LAB BLOOD ORDERABLES Fi nal Result Performing Organization Address [facility] [place] [address] * IgG (03/30/2025 8:06 AM CDT) Pathologist [facility] Immunoglobulin G 958 700 - 1,600 mg/dL Blood 03/30/2025 8:06 AM CDT 03/30/2025 8:58 AM CDT us Olman Cisneros MD LAB BLOOD ORDERABLES Fi nal Result [facility] Department [place] [address] * (ABNORMAL) Comprehensive metabolic panel (03/30/2025 8:06 AM CDT) Sodium 144 135 - 145 mmol/L Potassium, pl 4.3 3.3 - 4.9 mmol/L [facility] Chloride 108 97 - 110 mmol/L [facility] CO2 27 22 - 32 mmol/L C[facility]ER [facility] Anion gap 9 2 - 15 mmol/L [facility] BUN 20 6 - 25 mg/dL [facility] Creatinine 1.33(H) 0.60 - 1.10 mg/dL [facility] Glucose 149 70 - 199 mg/dL [facility] Comment: Interpretive Data Fasting glucose >/= 126 [...] 2022. Calcium 8.9 8.5 - 10.3 mg/dL [facility] Bilirubin, total 0.3 0.1 - 1.2 mg/dL [facility] Protein, pl 6.9 6.5 - 8.5 g/dL [facility] Albumin 3.8 3.5 - 5.0 g/dL [facility] Alk phos 98 40 - 130 Units/L [facility] ALT 6(L) 7 - 45 Units/L [facility] AST 14 10 - 45 Units/L [facility] Blood 03/30/2025 8:06 AM CDT 03/30/2025 8:25 AM CDT Olman Cisneros MD LAB BLOOD ORDERABLES Fi nal Result NKECHI [facility] Department [place] [address] * (ABNORMAL) TNI with LIPID PANEL (12/03/2020 12:45 PM ENVIRONMENTAL SCIENCE TECHNICIAN) Troponin I <0.300 0.000 - 0.300 ng/mL [facility] Comment: Reference using CHELSEY Chemiluminescence Negative: Repeat in 4-6 hours as indicated. Triglycerides 425(H) 0 - 149 mg/dL [facility] Comment: LDL(measured) to follow due to Triglycerides >250 mg/dL. National Lipid Association/NCEP Guidelines: Normal < 150 mg/dL Borderline high 150-199 mg/dL High 200-499 mg/dL Very High >=500 mg/dL Cholesterol 272(H) 0 - 199 mg/dL [facility] Comment: National Lipid Association/NCEP Guidelines: Desirable < 200 mg/dL Borderline high: 200-239 mg/dL High Risk: >=240 mg/dL HDL Cholesterol 35 mg/dL [facility] Comment: Reference Ranges: Males: >=40 mg/dL Females: >=50 mg/dL Cholesterol/HDL Ratio 7.8 [facility] Comment: Optimal < 3.5:1 High > 5:1 12/03/2020 12:4 5 PM ENVIRONMENTAL SCIENCE TECHNICIAN 12/03/2020 1:25 PM ENVIRONMENTAL SCIENCE TECHNICIAN Narrative Resulting Agency Comment ER us [facility] LAB BLOOD ORDERABLES Edited Re sult - Final [facility] [address] [place], [place] [phone] [place] [address] from Last 3 Months or Most Recently Relevant to Health Maintenance Insurance [employer] MEDICARE [facility] MEDICARE [facility] MEDICARE Care Teams Educational Consultant Relationship Specialty Start Date End Date Edgardo Shultz DO PCP - General Family Medicine 05/25/19 Emile Barbour MD [address] [place] [address] Referring Physician Hematology 11/28/22 Olman Cisneros MD [address] [place] [address] Medical Oncologist/Media Services Coordinator Medical Oncology 12/01/22
--- OUTSIDE RECORDS SUMMARY | 2025-06-05 15:39 | XMS_ITS | Encounter Summary ---
Author Organization [facility] Address [facility] [place] [address] Care Team Providers Care General Internist And Physician Leader Name Role Phone LexiiheidiSully moodychary Anne-Marie HARKINS Primary Care Provider + Bubba Remy MD Unavailable [phone] Encounter Details Date Type Department Care Team (Latest Contact Info) Description 04/03/2025 ClearAccess Message Enc [facility] Multispecialty Care - [facility] 3 [facility], [address] [phone] [place], [facility] Provider Appointment Reminder Social History Tobacco Use [...] materials from doctor or pharmacy Rarely 04/04/2024 [facility] Utilities Answer Date Recorded In the past 12 months has [email or web address] electric, gas, oil, or water company threatened [...] place to sleep or slept in a residential (including now)? 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 Answer Entry Date Author Status No 11/10/2023 4:56 PM VIROLOGY TEACHER Paula Clinton RN Active documented in this encounter Plan of Treatment Upcoming Encounters Date Type Department Care Team (Late st Contact Info) Description 07/03/2025 8:40 AM CDT Office Visit [facility] Family & [facility] - [place] [address] [place] [address] Edgardo Shultz, DO [address] [place] [address] 07/08/2025 10:40 AM CDT Office Visit [facility] 3 [facility], [address] [place] [phone] Phuong Norman NP 3 [facility]. [address] [place], [place] [phone] 07/31/2025 9:45 AM CDT Office Visit [facility] [address] [place] [address] Glory Chatman MD Three [facility] [address] [place], [place] [phone] 09/29/2025 11:40 AM VIROLOGY TEACHER Office Visit [facility] 3 [facility] [place] [phone] Saúl Keyes DO 3 [facility] [address] [place], [place] [address] documented as of this encounter Goals Goal [...] documented as of this encounter Care Teams General Internist And Physician Leader Relationship Specialty Start Date End Date Edgardo Shultz DO [address] [place] [phone] PCP - General FAMILY PRACTICE 10/16/18 Bubba Remy MD [address] [facility] [address] [place] [phone] Consulting Physician CARDIOVASCULAR DISEASE 10/24/23 documented as of this encounter
--- OUTSIDE RECORDS SUMMARY | 2025-06-05 15:39 | XMS_ITS | Patient Health Record ---
Author Organization [facility] As [employer] Address [address] [facility] [address] [place] [address] Care Team Providers Care Loan Teller Name Role Phone Benedict GLYNN, Filemon Primary Care Provider Paula Curtis Unavailable [phone] Allergies Allergen (clinical drug ingredient) Drug/Non Drug Allergy documented on EMR Reaction Allergy Type Onset Date Status adhesive tape (uncoded) Unknown Allergy Active Results Component Value Reference Range Notes THCCOOH Reviewed date:04/17/2025 12:15:56 PM Interpretation: Performing Lab:[address] [place] [address], Director - [id number] Notes/Report: An exception occurred while processing this report and so it has incomplete data. Please contact [employer] for assistance. THCCOOH 189.9 15.0 ng/mL Not Medicated Inconsistent PDF Report CE_OUT_RAW_CO MMON_SRC_ORU Validity Testing Reviewed date:04/17/2025 12:16:06 PM Interpretation: Performing Lab: Notes/Report: Not Medicated Consistent Not Medicated Consistent Not Medicated Consistent Not Medicated Consistent Specific [place] 1.017 1.003 - 1.030 pH 5.0 3.0 - 10.9 Oxidants -49 200 g/mL Creatinine 148.8 20.0 - 300.0 mg/dL UDT Reviewed date:04/07/2025 11:00:42 AM Interpretation: Performing Lab: Notes/Report: THC POS 0 - 50 ng/ml Cocaine NEG 0 - 300 ng/ml Amphetamine NEG 0 - 1000 ng/ml Buprenorphine (BUP) NEG 0 - 10 ng/ml Secobarbital (Bar) NEG 0 - 300 ng/ml Oxazepam (BZO) NEG 0 - 300 ng/ml 3-gvulrspkas-7,9-jprqtepn-2, 3-dipheny lpyrrolidine (EDDP) NEG 0 - 300 ng/ml Methamphetamine (MET) NEG 0 - 1000 ng/ml Methylenedioxymethamphetamine (MDMA) NEG 0 - 500 ng/ml Morphine (MOP 300/[id number]) NEG 0 - 300 ng/ml Methadone (MTD) NEG 0 - 300 ng/ml Phencyclidine (PCP) NEG 0 - 25 ng/ml Nortriptyline (TCA) NEG 0 - 1000 ng/ml Oxycodone NEG 0 - 300 ng/ml x NEG 0 - 300 ng/ml Reason For Referral No Information Medications Medication SIG (Take, Route, Frequency, Duration) Notes Start Date End Date Status Mounjaro 5 MG/0.5ML INJECT 5 MG SUBCUTAN EOUSLY EVERY 7 DAYS Subcutaneous; Duration: 84 Days Active Aspirin Low Dose 81 MG CHEW 1 TABLET BY MOUTH DAILY. Oral; Duration: 90 Days Active Topiramate 100 MG TAKE 1 TABLET BY BILLY TH TWICE A DAY Oral; Duration: 90 Days Active Omeprazole 40 MG TAKE 1 CAPSULE (40 M G TOTAL) BY MOUTH DAILY. Oral; Duration: 30 Days Active Metoprolol Succinate ER 25 MG TAKE 1 TABLET (25 MG TOTAL) BY MOUTH DAILY. INDICATIONS: HIGH BLOOD PRESSURE DISORDER Oral; Duration: 30 Days Active Gabapentin 100 MG TAKE 1 CAPSULE (100 MG TOTAL) BY MOUTH THREE TIMES DAILY. Oral; Duration: 30 Days Active Breo Ellipta 100-25 MCG/ACT TAKE 1 PUFF BY MOUTH EVERY DAY Inhalation; Duration: 30 Days Active Levothyroxine Sodium 75 MCG TAKE 1 TABLET (75 MCG TOTAL) BY MOUTH DAILY. INDICATIONS: UNDERACTIVE THYROID Oral; Duration: 90 Days Active Ondansetron 4 MG TAKE 1 TABLET BY BILLY TH EVERY 8 HOURS NEEDED FOR NAUSEA Oral; Duration: 6 Days Active Atorvastatin Calcium 80 MG TAKE 1 TABLET BY MOUTH NIGHTLY AT BEDTIME. Oral; Duration: 90 Days Active Repatha SureClick 140 MG/ML INJECT THE CONTENTS OF 1 PEN UNDER THE SKIN EVERY 14 DAYS Subcutaneous; Duration: 28 Days Active Cephalexin 500 MG TAKE 1 CAPSULE BY MO UTH DAILY FOR INFECTION Oral; Duration: 90 Days Active Airsupra 90-80 MCG/ACT TAKE 2 PUFFS BY M OUTH EVERY 4 HOURS NEEDED Inhalation; Duration: 10 Days Active Gabapentin 300 MG TAKE 1 CAPSULE (300 MG TOTAL) BY MOUTH 3 (THREE) TIMES DAILY NEEDED FOR BACK PAIN Oral; Duration: 30 Days Active Social History Tobacco Use: Social History Observation Description Date Details (start date - stop date) Former Smoker NA - NA Sex Assigned At : Social History Observation Description Sex Assigned At Female Household Question Answer Notes Marital status: Number of adults in household: 2 Number of children in household: 2 daughters 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 1997 When did you stop smoking? 2013 How long has it been since you last smoked? Grea ter than 10 years AUDIT-C (Standard) Question Answer Notes Did you have a drink contain ing alcohol in the past year? Yes How often did you have six o r more drinks on one occasion in the past year? Never (0 point) How many drinks did you have on a typical day when you were drinking in the past year? 1 or 2 drinks (0 point) How often did you have a dri nk containing alcohol in the past year? Monthly or less (1 point) Problems Problem Type SNOMED Code ICD Code Onset Dates Problem Status W/U Status Risk Notes Problem Depression Screening (056876050) Encounter for screening for depression (Z13.31) Active confirmed Problem Generalized anxiety disorder (47823143) ELENO (generalized anxiety disorder) (F41.1) Active confirmed Problem Moderate recurrent major depression (69262526) MDD (major depressive disorder), recurrent episode, moderate (F33.1) Active confirmed Problem Nondependent cannabis abuse (463049865) Marijuana use (F12.90) Active confirmed Problem Family tension (674870518) Family tension (Z63.9) Active confirmed Vital Signs Heart Rate 85 /min 04/07/2025 Height-cm 165.1 cm 04/07/2025 Blood pressure diastolic 77 mm Hg 04/07/2025 Weight-kg 82.46 kg 04/07/2025 Height 65 in 04/07/2025 Blood pressure systolic 129 mm Hg 04/07/2025 Weight 181.8 lbs 04/07/2025 BMI 30.25 kg/m2 04/07/2025 Encounters Encounter Location Date Provider Diagnosis [facility] [address] [address] 04/07/2025 Paula Oh Encounter for screening for depression Z13.31 ; MDD (major depressive disorder), recurrent episode, moderate F33.1 ; Marijuana use F12.90 ; ELENO (generalized anxiety disorder) F41.1 and Family tension Z63.9 Assessments Encounter Date Diagnosis (ICD Code) Assessment Notes Treatment Notes Treatment Clinical Notes Section Notes 04/07/2025 Encounter for screening for depression (ICD-10 - Z13.31) 1. Depression pateint prefer therapy at this time over medications 2. Anxiety pateint prefer therapy at this time over medications 3. Family and marriage tension refer to therapy- FLORIAN pateint prefer therapy at this time over medications Pateint will also consider marraige therapy 4. Cannabis use Cannabis Use Education NO CONTROL SUBSTANCE PRESCRIBED BY FLORIAN with cannabis use Recommend decrease/stop cannabis use as it can negatively impact mood, motivation, anxiety, sleep, focus/concentrati on/memory (vigilance, elasticity, processing and attention); can also contribute to development of psychosis. Recommend decrease/stop cannabis use as it may be negatively impacting mood, motivation, anxiety, sleep, focus; can also contribute to development of psychosis Cannabis/marijuan a information: http_s://roxi.nih .gov/publications /drugfacts/cannab is-marijuana http_s://www.FIGMD/canna cuf-qqd-zattushi- marijuana-adhd/ educated on all medications, benefits, side effects and risk, and educated on depression, anxiety, and ADHD, mood d/o and educated on compliance of medications, metabolic and movement d/o education appointment is, continue therapy discussion with patient about course of treatment and patient instructions. education on serotonin syndrome SSRI/SNRI side effects discussed including but not limited to, gastric upset, nausea, vomiting, diarrhea and/or constipation, weight changes, sexual side effects including loss of libido, increased suicidal thoughts/behavior s in children and young adults, and serotonin syndrome. Medication Management and Follow-Up - Plan: - Schedule follow-up appointments every 1-3 months to monitor the patient's response to the medication regimen. - Reinforce the importance of avoiding recreational drug use due to potential neurotoxicity and interactions with prescribed medications. 04/07/2025 MDD (major depressive disorder), recurrent episode, moderate (ICD-10 - F33.1) 1. Depression pateint prefer therapy at this time over medications 2. Anxiety pateint prefer therapy at this time over medications 3. Family and marriage tension refer to therapy- FLORIAN pateint prefer therapy at this time over medications Pateint will also consider marraige therapy 4. Cannabis use Cannabis Use Education NO CONTROL SUBSTANCE PRESCRIBED BY FLORIAN with cannabis use Recommend decrease/stop cannabis use as it can negatively impact mood, motivation, anxiety, sleep, focus/concentrati on/memory (vigilance, elasticity, processing and attention); can also contribute to development of psychosis. Recommend decrease/stop cannabis use as it may be negatively impacting mood, motivation, anxiety, sleep, focus; can also contribute to development of psychosis Cannabis/marijuan a information: http_s://roxi.nih .gov/publications /drugfacts/cannab is-marijuana http_s://www.FIGMD/canna ubs-xwo-zhyoxool- marijuana-adhd/ educated on all medications, benefits, side effects and risk, and educated on depression, anxiety, and ADHD, mood d/o and educated on compliance of medications, metabolic and movement d/o education appointment is, continue therapy discussion with patient about course of treatment and patient instructions. education on serotonin syndrome SSRI/SNRI side effects discussed including but not limited to, gastric upset, nausea, vomiting, diarrhea and/or constipation, weight changes, sexual side effects including loss of libido, increased suicidal thoughts/behavior s in children and young adults, and serotonin syndrome. Medication Management and Follow-Up - Plan: - Schedule follow-up appointments every 1-3 months to monitor the patient's response to the medication regimen. - Reinforce the importance of avoiding recreational drug use due to potential neurotoxicity and interactions with prescribed medications. 04/07/2025 Marijuana use (ICD-10 - F12.90) 1. Depression pateint prefer therapy at this time over medications 2. Anxiety pateint prefer therapy at this time over medications 3. Family and marriage tension refer to therapy- FLORIAN pateint prefer therapy at this time over medications Pateint will also consider marraige therapy 4. Cannabis use Cannabis Use Education NO CONTROL SUBSTANCE PRESCRIBED BY FLORIAN with cannabis use Recommend decrease/stop cannabis use as it can negatively impact mood, motivation, anxiety, sleep, focus/concentrati on/memory (vigilance, elasticity, processing and attention); can also contribute to development of psychosis. Recommend decrease/stop cannabis use as it may be negatively impacting mood, motivation, anxiety, sleep, focus; can also contribute to development of psychosis Cannabis/marijuan a information: http_s://roxi.nih .gov/publications /drugfacts/cannab is-marijuana http_s://www.FIGMD/Datahero nqj-ixa-ieikxixm- marijuana-adhd/ educated on all medications, benefits, side effects and risk, and educated on depression, anxiety, and ADHD, mood d/o and educated on compliance of medications, metabolic and movement d/o education appointment is, continue therapy discussion with patient about course of treatment and patient instructions. education on serotonin syndrome SSRI/SNRI side effects discussed including but not limited to, gastric upset, nausea, vomiting, diarrhea and/or constipation, weight changes, sexual side effects including loss of libido, increased suicidal thoughts/behavior s in children and young adults, and serotonin syndrome. Medication Management and Follow-Up - Plan: - Schedule follow-up appointments every 1-3 months to monitor the patient's response to the medication regimen. - Reinforce the importance of avoiding recreational drug use due to potential neurotoxicity and interactions with prescribed medications. 04/07/2025 ELENO (generalized anxiety disorder) (ICD-10 - F41.1) 1. Depression pateint prefer therapy at this time over medications 2. Anxiety pateint prefer therapy at this time over medications 3. Family and marriage tension refer to therapy- FLORIAN pateint prefer therapy at this time over medications Pateint will also consider marraige therapy 4. Cannabis use Cannabis Use Education NO CONTROL SUBSTANCE PRESCRIBED BY FLORIAN with cannabis use Recommend decrease/stop cannabis use as it can negatively impact mood, motivation, anxiety, sleep, focus/concentrati on/memory (vigilance, elasticity, processing and attention); can also contribute to development of psychosis. Recommend decrease/stop cannabis use as it may be negatively impacting mood, motivation, anxiety, sleep, focus; can also contribute to development of psychosis Cannabis/marijuan a information: http_s://roxi.nih .gov/publications /drugfacts/cannab is-marijuana http_s://www.FIGMD/WorkshopLivea hmk-nca-lnqcqvqq- marijuana-adhd/ educated on all medications, benefits, side effects and risk, and educated on depression, anxiety, and ADHD, mood d/o and educated on compliance of medications, metabolic and movement d/o education appointment is, continue therapy discussion with patient about course of treatment and patient instructions. education on serotonin syndrome SSRI/SNRI side effects discussed including but not limited to, gastric upset, nausea, vomiting, diarrhea and/or constipation, weight changes, sexual side effects including loss of libido, increased suicidal thoughts/behavior s in children and young adults, and serotonin syndrome. Medication Management and Follow-Up - Plan: - Schedule follow-up appointments every 1-3 months to monitor the patient's response to the medication regimen. - Reinforce the importance of avoiding recreational drug use due to potential neurotoxicity and interactions with prescribed medications. 04/07/2025 Family tension (ICD-10 - Z63.9) 1. Depression pateint prefer therapy at this time over medications 2. Anxiety pateint prefer therapy at this time over medications 3. Family and marriage tension refer to therapy- FLORIAN pateint prefer therapy at this time over medications Pateint will also consider marraige therapy 4. Cannabis use Cannabis Use Education NO CONTROL SUBSTANCE PRESCRIBED BY FLORIAN with cannabis use Recommend decrease/stop cannabis use as it can negatively impact mood, motivation, anxiety, sleep, focus/concentrati on/memory (vigilance, elasticity, processing and attention); can also contribute to development of psychosis. Recommend decrease/stop cannabis use as it may be negatively impacting mood, motivation, anxiety, sleep, focus; can also contribute to development of psychosis Cannabis/marijuan a information: http_s://roxi.nih .gov/publications /drugfacts/cannab is-marijuana http_s://www.FIGMD/canna bvo-ytb-etztpnhn- marijuana-adhd/ educated on all medications, benefits, side effects and risk, and educated on depression, anxiety, and ADHD, mood d/o and educated on compliance of medications, metabolic and movement d/o education appointment is, continue therapy discussion with patient about course of treatment and patient instructions. education on serotonin syndrome SSRI/SNRI side effects discussed including but not limited to, gastric upset, nausea, vomiting, diarrhea and/or constipation, weight changes, sexual side effects including loss of libido, increased suicidal thoughts/behavior s in children and young adults, and serotonin syndrome. Medication Management and Follow-Up - Plan: - Schedule follow-up appointments every 1-3 months to monitor the patient's response to the medication regimen. - Reinforce the importance of avoiding recreational drug use due to potential neurotoxicity and interactions with prescribed medications. 04/07/2025 Other Learning About Depression Screening material was printed 1. Depression pateint prefer therapy at this time over medications 2. Anxiety pateint prefer therapy at this time over medications 3. Family and marriage tension refer to therapy- FLORIAN pateint prefer therapy at this time over medications Pateint will also consider marraige therapy 4. Cannabis use Cannabis Use Education NO CONTROL SUBSTANCE PRESCRIBED BY FLORIAN with cannabis use Recommend decrease/stop cannabis use as it can negatively impact mood, motivation, anxiety, sleep, focus/concentrati on/memory (vigilance, elasticity, processing and attention); can also contribute to development of psychosis. Recommend decrease/stop cannabis use as it may be negatively impacting mood, motivation, anxiety, sleep, focus; can also contribute to development of psychosis Cannabis/marijuan a information: http_s://roxi.nih .gov/publications /drugfacts/cannab is-marijuana http_s://www.FIGMD/canna det-thp-ohfpzpwl- marijuana-adhd/ educated on all medications, benefits, side effects and risk, and educated on depression, anxiety, and ADHD, mood d/o and educated on compliance of medications, metabolic and movement d/o education appointment is, continue therapy discussion with patient about course of treatment and patient instructions. education on serotonin syndrome SSRI/SNRI side effects discussed including but not limited to, gastric upset, nausea, vomiting, diarrhea and/or constipation, weight changes, sexual side effects including loss of libido, increased suicidal thoughts/behavior s in children and young adults, and serotonin syndrome. Medication Management and Follow-Up - Plan: - Schedule follow-up appointments every 1-3 months to monitor the patient's response to the medication regimen. - Reinforce the importance of avoiding recreational drug use due to potential neurotoxicity and interactions with prescribed medications. Plan Of Treatment Next Appt Details Provider Name:Paula Malloryashwini , 10/08/2025 09:15:00 AM, [address], [facility] [address], [place], [address], Insurance Providers Payer Name Payer Address Payer Phone Subscriber Number Group Number Insured Name Patient Relationship to Insured Coverage Start Date Coverage End Date [employer] [address] [place] [phone] [id number] Kadie Contreras Self - patient is the insured Medical (General) History Medical History History ICD Code Migraine DM Type 2 Hypothyroidism Kidney disease stage 3 Arthritis Anemia Thyroid disorder abdominal aortic aneurysm: No atrial fibrillation: Yes chronic fatigue syndrome: No essential tremor: No hyperlipidemia: No hypertension: No Parkinson's disease: No restless leg syndrome: No stroke: Yes subdural hematoma: No type 1 diabetes mellitus: No type 2 diabetes mellitus: Yes vitamin B12 deficiency: Yes vitamin D deficiency: Yes MGUS pre cancer hx seizure when adjusted rx neurologist age 18 Dilatin Surgical History Surgery Date(Month/Year) guadtruple bypass 10/2023 2 elbows 1 knee hysterectomy [facility] 6 or 7 cateract surgeries
--- OUTSIDE RECORDS SUMMARY | 2025-06-05 15:39 | XMS_ITS | Encounter Summary ---
Author Organization [facility] Address [facility] [place] [address] Care Team Providers Care Engineer Byproduct Name Role Phone Edgardo Shultz DO Primary Care Provider + Bubba Remy MD Unavailable [phone] Encounter Details Date Type Department Care Team (Latest Contact Info) Description 06/04/2025 Results Follow-Up [facility] Family & Internal Medicine [facility] [address] [place] [address] Edgardo Shultz DO [address] [place] [address] COMPREHENSIVE METABOLIC PANEL, URIC ACID BLOOD, XR ANKLE RT M3V Social History Tobacco Use Types Packs/Day Years [...] materials from doctor or pharmacy Rarely 04/04/2024 C Utilities Answer Date Recorded In the past [...] Sex Assigned at Female 12/12/2024 11:05 AM DAM OPERATOR Legal Sex Female 11:21 AM DAM OPERATOR Gender Identity Female 12/15/2024 10:33 AM DAM OPERATOR Sexual Orientation Straight 01/05/2025 10 :13 AM DAM OPERATOR 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, [address] [place] [phone] Phuong Norman NP [address] [facility]. [address] [place] [address] 07/31/2025 9:45 AM CDT Office Visit [facility] [address] Glory Chatman MD [address] [facility] [address] [place] [address] 09/29/2025 11:40 AM DAM OPERATOR Office Visit [facility] [address] [facility] [place] [phone] Saúl Keyes DO [facility] [address] [place] [address] documented as of this encounter Goals Goal [...] documented as of this encounter Care Teams Engineer Byproduct Relationship Specialty Start Date End Date Edgardo Shultz DO [address] [place] [phone] PCP - General FAMILY PRACTICE 10/16/18 Bubba Remy MD [address] [phone] Consulting Physician CARDIOVASCULAR DISEASE 10/24/23 documented as of this encounter
--- OUTSIDE RECORDS SUMMARY | 2025-06-05 15:39 | XMS_ITS | Encounter Summary ---
Author Organization [facility] - [facility] Address [facility]ly [facility], [facility] [place] [address] Care Team Providers Care Trial Consultant Name Role Phone LexiiheidiSully moodychary Anne-Marie HARKINS Primary Care Provider + Bubba Remy MD Unavailable [phone] Encounter Details Date Type Department Care Team (Late st Contact Info) Description 04/29/2024 [employer] Message Enc [facility] Medical Group Multispecialty Care - [facility] 3 [facility], [facility] [address] [place] [phone] [place], [facility] Provider results Social History Tobacco Use Types Packs/Day Years [...] materials from doctor or pharmacy Rarely 04/04/2024 [facility] Utilities Answer Date Recorded In the past 12 months has [employer] electric, gas, oil, or water company threatened [...] place to sleep or slept in a group home (including now)? 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 [address] [place] [address] 07/31/2025 9:45 AM CDT Office Visit [facility] [address] [phone] Glory Chatman MD Three [facility] [address] [place] [address] 09/29/2025 11:40 AM CANTEEN MANAGER Office Visit [facility] 3 [facility] [address] [place] [phone] Saúl Keyes DO 3 [facility] [address] [place] [address] documented as of this encounter Goals Goal Patient Goal Type Associated Problems Recent Progress Patient-Stated? Author Health - patient able to perform ADLs independently Lifestyle Marti Marquez RN documented as of this encounter Visit Diagnoses Not on filedocumented in this encounter Additional Health Concerns Infection Onset Date Last Indicated Resolved Time COVID-19 Rule Out 12/17/2024 12/17/2024 12/17/2024 11:41 AM CANTEEN MANAGER Assessment Noted Time PHQ-9 Depression Total Score: 6 05/12/20 22 2:03 PM CDT documented as of this encounter Care Teams Trial Consultant Relationship Specialty Start Date End Date Edgardo Shultz DO [address] [place] [address] PCP - General FAMILY PRACTICE 10/16/18 Bubba Remy MD [address] [phone] Consulting Physician CARDIOVASCULAR DISEASE 10/24/23 documented as of this encounter
--- OUTSIDE RECORDS SUMMARY | 2025-06-05 15:39 | XMS_ITS | Encounter Summary ---
Author Organization [facility] - [facility] Address [facility] [place] [address] Care Team Providers Care Database Design Analyst Name Role Phone LexiiarnoldSullyEdgardo Anne-Marie HARKINS Primary Care Provider + Bubba Remy MD Unavailable [phone] Encounter Details Date Type Department Care Team (Latest Contact Info) Description 08/29/2024 [employer] Message Enc [facility] Medical Group Multispecialty Care - [facility] 3 [facility], [facility] [address] [place] [phone] [employer], [facility] Provider RESHCEDULED APPOINTMENT Social History Tobacco Use Types Packs/Day Years [...] materials from doctor or pharmacy Rarely 04/04/2024 [facility] Utilities Answer Date Recorded In the [...] place to sleep or slept in a alf (including now)? 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, [address] [place] [phone] Phuong Norman NP 3 [facility]. [address] [place] [address] 07/31/2025 9:45 AM CDT Office Visit [facility] [phone] Glory Chatman MD Three [facility] [address] [place] [address] 09/29/2025 11:40 AM STEAM BOX TENDER Office Visit [facility] 3 [facility] [address] [place] [phone] Saúl Keyes DO 3 [facility] [address] [place] [address] documented as of this encounter Goals Goal Patient Goal Type Associated Problems Recent Progress Patient-Stated? Author Health - patient able to perform ADLs independently Lifestyle Marti Marquez RN documented as of this encounter Visit Diagnoses Not on filedocumented in this encounter Additional Health Concerns Infection Onset Date Last Indicated Resolved Time COVID-19 Rule Out 12/17/2024 12/17/2024 12/17/2024 11:41 AM STEAM BOX TENDER Assessment Noted Time PHQ-9 Depression Total Score: 6 05/12/20 22 2:03 PM CDT documented as of this encounter Care Teams Database Design Analyst Relationship Specialty Start Date End Date Edgardo Shultz DO [address] [place] [phone] PCP - General FAMILY PRACTICE 10/16/18 Bubba Remy MD [address] [phone] Consulting Physician CARDIOVASCULAR DISEASE 10/24/23 documented as of this encounter
--- OUTSIDE RECORDS SUMMARY | 2025-06-05 15:39 | XMS_ITS | Clinical Summary ---
Author Organization [facility] Address [address] [place] [phone] Phone Care Team Providers Care Environmental Studies Faculty Member Name Role Phone LexiiEdgardo barrett Anne-Marie DO Primary Care Provider + Allergies Active Allergy Reactions Criticality Noted Date Comments Sulfamethoxazole-Trimet hoprim Other (see comments) 07/25/2022 Possible TATIANA Wound Dressing Adhesive Other (see comments) Low Skin irritation Medications Blood Glucose Monitoring Suppl (ONE TOUCH ULTRA 2) w/Device kit USE TO TEST BLOOD SUGAR LEVELS DAILY IN THE MORNING WHEN FASTING 2 Active aspirin 81 MG chewable tablet Chew 81 mg in the morning. 8 Active Trulicity 1.5 MG/0.5ML solution pen-injector ADMINISTER 1.5 MG UNDER THE SKIN EVERY 7 DAYS 2 Active OneTouch Ultra test strip CHECK BLOOD SUGAR ONCE DAILY IN AM WHEN FASTING 2 Active Lancets (OneTouch Delica Plus [id number]) [facility] USE TO TEST BLOOD SUGAR LEVELS EVERY MORNING WHEN FASTING 2 Active levothyroxine (SYNTHROID) 25 MCG tablet Take 25 mcg by mouth in the morning. 1 Active losartan (COZAAR) 25 MG tablet losartan 25 mg tablet 2 Active metFORMIN (GLUCOPHAGE) 500 MG tablet 2 Active rosuvastatin (CRESTOR) 5 MG tablet Take 5 mg by mouth in the morning. Active Probiotic Product (PROBIOTIC-10 PO) Take by mouth Active Active Problems Problem Noted Date Diagnosed Date Chronic kidney disease stage 3A 09/13/2022 Mixed hyperlipidemia 07/28/2021 Polyneuropathy due to type 2 diabetes mellitus 0 11/29/2020 Urinary tract infectious disease 06/09/2020 Diastolic dysfunction 06/08/2019 Type 2 diabetes mellitus 10/21/2018 Abnormal glucose level 07/31/2016 Hypothyroidism 07/31/2016 Monoclonal gammopathy 07/31/2016 Immunizations Immunization Administration Dates Next Due Influenza TIV (IM) 11/19/2013 Influenza, Injectable, Quadr ivalent, Preservative Free 08/01/2020 Influenza, Unspecified 08/28/2022,08/31/2021,06/2021 Pfizer Sars-cov-2 Vaccination 09/02/2022 Social History Tobacco Use Types Packs/Day Years Used Date Smoking Tobacco: Former Cigarettes Smokeless Tobacco: Never Tobacco Cessation:Counseling Given: Not Answered Alcohol Use Standard Drinks/Week Comments Yes 0 (1 standard drink = 0.6 oz pur e alcohol) rare Comments Unknown Sex and Gender Information Value Date Recorded Sex Assigned at Not on file Legal Sex Female 12:21 PM MDT Gender Identity Not on file Sexual Orientation Not on file Last Filed Vital Signs Vital Sign Reading Time Taken Comments Blood Pressure 126/70 09/13/2022 10:27 AM CDT Pulse 72 09/13/2022 10:27 AM CDT Temperature 36.1 C (96.9 F) 09/13/2022 10:27 AM CDT Respiratory Rate - - Oxygen Saturation - - Inhaled Oxygen Concentration - - Weight 90.7 kg (200 lb) 09/13/2022 10:27 AM CDT Height 167.6 cm (5' 6) 09/13/2022 10:27 AM CDT Body Mass Index 32.28 09/13/2022 10:27 AM CDT Plan of Treatment Health Maintenance Due Date Last Done Comments Pneumococcal PPSV23/PCV13 65 + Years / Low and Medium Risk (1 of 2 - PCV) 2006 COVID-19 Vaccine (2023-2 5 season) 2024 09/02/2022, 08/17/2021, 01/20/2021 Influenza Vaccine (#1) 2025 , 08/31/2021, 08/26/2021, Additional history exists Insurance [employer] MED[employer]ARE ADVANTAGE Care Teams Environmental Studies Faculty Member Relationship Specialty Start Date End Date Edgardo Shultz DO [address] [place] [phone] PCP - General Family Medicine 08/01/22
== END 2025-06-05 15:37 | disposition home or self-care (01) ==
PROVIDERS: PCP Student in an Organized Health Care Education/Training Program; Visit Provider Student in an Organized Health Care Education/Training Program
DX: Z12.31 Encounter for screening mammogram for malignant neoplasm of breast (principal)
CPT/HCPCS: 77063; 77067